=== PATIENT | male | born 1950 | race Caucasian/White ===

== ENCOUNTER 2017-05-21 10:55 | Inpatient (IN) | payer MEDICARE, MEDICAID ==
[2017-05-21] MEDS: NS 0.9% 1000 ML* 1,000 ML IV ONE ×3 (11:40→12:19)
[2017-05-21 11:51] LABS: ABS Basophils 0.1 10^3/ul (0-0.2); ABS Eosinophils 0.1 10^3/ul (0-0.6); ABS Lymphocytes 0.5 10^3/ul (1.0-4.8); ABS Monocytes 0.4 10^3/ul (0-0.8); ABS Neutrophils 3.6 10^3/ul (1.5-7.7); ABS Nucleated RBC 0 10^3/ul; Eosinophil % 1.6 % (0-6); Hematocrit 28 % (42-52); Lymphocyte % 10.5 % (25-47); Mean Corpuscular HGB Conc 32 g/dl (31-36); Mean Corpuscular Hemoglobin 26 pg (27-31); Mean Corpuscular Volume 83 fL (80-94); Mean Platelet Volume 8 um3 (7.4-10.4); Nucleated Red Blood Cells % 0; Platelet Count 168 10^3/ul (150-450); Red Blood Count 3.42 10^6/ul (4.0-5.4); Red Cell Distribution Width 20 % (10.5-15); White Blood Count 4.7 10^3/ul (3.5-10.8)
[2017-05-21 11:57] LABS: INR 1.43 (0.77-1.02)
[2017-05-21 12:08] LABS: EGFR Non-African American 63.9 (>60)
[2017-05-21] MEDS ORDERED: Octreotide Acetate* 50 MCG in NS 0.9% 50 ML* 50 ML IVPB ONE (13:05)
[2017-05-21] MEDS ORDERED: Morphine INJ* 2 MG/ML 1 ML CARPUJECT IV PRN (13:17)
[2017-05-21] MEDS ORDERED: Ondansetron INJ* 2 MG/ML VIAL IV PRN (13:17)
[2017-05-21] MEDS ORDERED: Dextrose 50% Syringe 50 ML* 25 GM/50 ML SYRINGE IV PUSH PRN (13:31)
[2017-05-21] MEDS ORDERED: D5W 250 ML BAG* 250 ML IV SCH (14:00)
[2017-05-21] MEDS ORDERED: Pantoprazole IV* 80 MG in NS 0.9% 100 ML* 100 ML IVPB SCH (14:00)
[2017-05-21] MEDS: Octreotide Acetate* 500 MCG in NS 0.9% 100 ML* 100 ML IVPB SCH (14:51)
[2017-05-21] MEDS: Pantoprazole IV* 80 MG in NS 0.9% 250 ML* 250 ML IVPB SCH (15:20)
[2017-05-21] MEDS: Insulin LISPRO* 1 UNITS UNIT SUBCUT SCH ×2 (15:30→17:59)
[2017-05-21] MEDS ORDERED: Insulin LISPRO* 1 UNITS UNIT SUBCUT SCH (16:30)
[2017-05-21] MEDS ORDERED: cefTRIAXone(*) 1 GM in NS 0.9% 50 ML* 50 ML IVPB SCH (17:30)
[2017-05-21] MEDS: cefTRIAXone(*) 1 GM in D5W 50 ML BAG* 50 ML IVPB SCH (17:59)
[2017-05-21 19:13] LABS: Hematocrit 25 % (42-52); Hemoglobin 8.1 g/dl (14.0-18.0)
[2017-05-21 19:56] LABS: Urine Appearance Clear; Urine Blood Negative (Negative); Urine Color Yellow; Urine Ketones Trace (Negative); Urine Protein Negative (Negative); Urine Specific Gravity 1.016 (1.010-1.030); Urine Urobilinogen Negative (Negative)
--- NOTE | 2017-05-21 20:18 | HP ---
CC: Dr. Curry * HISTORY AND PHYSICAL: DATE OF ADMISSION: 05/21/17 PROVIDER: Che Becerra NP PRIMARY CARE DOCTOR: Dr. Curry. ATTENDING PHYSICIAN WHILE IN THE HOSPITAL: Milla Craig MD * (dictated by Che Becerra NP). CHIEF COMPLAINT: GI bleed. HISTORY OF PRESENT ILLNESS: Mr. Colón is a 66-year-old male, who carries a past medical history of diabetes, hypertension, cryptogenic cirrhosis of the liver, gout. He came to the emergency room today complaining of bright red blood from the rectum. He states up until yesterday, he was in his normal state of health. This morning he got up, he felt like he was going to pass out , so he lied down. He says then he went to the bathroom and had a large bright red bowel movement x2. He denies any abdominal cramping. He denies any abdominal pain. He does report that on Thursday he did have a paracentesis done in which he had 2 bags of fluid removed in Dr. Diaz's office. He states that after that he was feeling better and that his breathing was better. He reports that his last colonoscopy was approximately 2 years ago and at that time it was within normal limits. He denied having any polyps. He states that he was followed by GI in [facility] for his colonoscopies. While in the emergency room , he was found to be hypotensive with the blood pressure as low as 77/59. He was given 3 L of normal saline and 2 units of blood. He denies any nausea or vomiting. He denies abdominal pain. Denies any recent weight loss. Denies any shortness of breath or chest pain. Denies any urinary frequency or urgency. Denies any loss of consciousness. Denies any fevers. We were asked to see and evaluate Mr. Colón for admission due to his hypotension and GI bleed. PAST MEDICAL HISTORY: Significant for: 1. Diabetes. 2. Hypertension. 3. Cryptogenic cirrhosis of the liver. 4. Gout. PAST SURGICAL HISTORY: 1. Cataracts. 2. Tonsils. 3. [place] tooth. MEDICATIONS: Home medications include: 1. Multivitamin 1 p.o. daily. 2. Spironolactone 25 mg p.o. b.i.d. 3. Glipizide 10 mg p.o. daily. 4. Ramipril 10 mg p.o. daily. 5. Allopurinol 300 mg p.o. daily. 6. Atenolol/chlorthalidone 50/25 one p.o. daily. ALLERGIES TO MEDICATIONS: No known drug allergies. FAMILY HISTORY: Father with a history of an DE. Mother with a history of diabetes, and father and mother both with a history of cancer. Mother with a history of breast cancer, father with unknown type of cancer. SOCIAL HISTORY: The patient was a previous smoker, he quit 18 years ago, prior to that he smoked a pack a day for approximately 5 years. He denies any current alcohol use, he states that in the past he drank occasionally, approximately 1 beer occasionally and was never a heavy drinker and denies any illicit drug use. He is retired. He lives alone. At this time, he does not have a surrogate decision maker. REVIEW OF SYSTEMS: There was no documented fever. No significant weight change. There was no double vision. No ear drainage. He denies having any rhinorrhea. Denies sore throat. Denies having any chest pain. Denies orthopnea or nocturnal dyspnea. There was no abdominal pain. No nausea. No vomiting. No dysuria. No frequency. There was no loss of consciousness. No pruritus. No skin ulcerations. He does report 2 episodes of bright red blood, loose stool this morning and no further. Review of 14 systems was completed and all others were negative. PHYSICAL EXAMINATION GENERAL: At this time, Mr. Colón is a 66-year-old male, who appears well. He is resting on the stretcher. He does not appear to be in any acute distress. VITAL SIGNS: Blood pressure is 86/46, heart rate is 76, respirations are 20, O2 sat was 99%, temperature was 98.4. HEENT: Head is atraumatic, normocephalic. Eyes: EOMs are intact. Sclerae anicteric, they are pale. Conjunctivae are pale. Oral mucosa appears to be dry. There is no oropharyngeal edema. NECK: Supple. LUNGS: Clear to auscultation bilaterally. There is no wheezes, rales or rhonchi. CARDIAC: S1, S2. Regular rate and rhythm. There is no murmurs, rubs, or gallops. He has +2 pitting edema to bilateral lower legs. ABDOMEN: Round, soft. Bowel sounds are positive x4. It is nontender. EXTREMITIES: Pedal pulses are +2. Radial pulses +2. He is moving all 4 extremities with 5/5 strength. NEUROLOGIC: He is awake, alert and oriented x3. His speech is clear. There is no focal deficits. SKIN: He has got bilateral scaling of the skin noted to bilateral shins with some brownish discoloration noted to the lower legs. DIAGNOSTIC STUDIES/LAB DATA: WBC's were 4.7, RBC's 3.42, hemoglobin was 9, hematocrit was 28, platelet count was 168,000. INR was 1.43. Chemistry: Sodium was 132, potassium of 4.4, chloride 102, carbon dioxide 23, anion gap was 7, BUN was 26, creatinine 1.14, calcium was 8.7. AST 21, ALT 9, alk phos was 54. BNP was 54. Total protein was 6.0. Albumin was 3.1. Electrocardiogram showed a sinus rhythm at rate of 72. There is no ST or T- wave changes. ASSESSMENT AND PLAN: Mr. Colón is a 66-year-old male patient that came to the emergency room today with a complaint of bright red blood from rectum. We were asked to evaluate him because of rectal bleeding and hypotension. He will be admitted to the ICU under inpatient status. 1. GI bleed. GI was consulted. We will place him on a Protonix drip. He was also placed on octreotide at 50 mcg per hour. He will receive 2 units of blood , which are currently infusing. He received normal saline, a total of 3 L in the emergency room. We will continue to trend his H and H q.6 hours and transfuse as needed. 2. Cryptogenic cirrhosis. We will place him on octreotide acetate 50 mcg per hour drip for the possibility of esophageal varices. 3. Hypertension. We will hold his Altace and atenolol with chlorthalidone at this time due to his hypotension. We will continue fluids as needed. 4. Gout. We will hold his allopurinol. 5. Diabetes. We will place him on fingersticks q.6 hours and lispro sliding scale q.6 hours. 6. FEN. He will be n.p.o. 7. Code status is full code. 8. DVT prophylaxis. We will give him SCDs. We will not place him on anticoagulation at this time due to his GI bleed. 9. Disposition. He will be placed in ICU for monitoring. TIME SPENT: Time spent on this admission was approximately 60 minutes, greater than half the time was spent [id number] with the patient obtaining his history and physical; the other half of the time was spent going over the plan of care with the patient and implementing the plan of care. I did discuss this plan with my attending, Dr. Milla Craig, and she is in agreement with my plan. CHE BECERRA, INDUSTRIAL ECOLOGY TECHNICIAN [id number]/[facility] #: [id number] VALERIO
[2017-05-21] MEDS: NS 0.9% 1000 ML* 1,000 ML IV SCH (23:00)
[2017-05-22] MEDS: Insulin LISPRO* 1 UNITS UNIT SUBCUT SCH ×4 (00:37→18:16)
[2017-05-22 00:52] LABS: Hematocrit 25 % (42-52); Hemoglobin 7.9 g/dl (14.0-18.0)
[2017-05-22] MEDS: Octreotide Acetate* 500 MCG in NS 0.9% 100 ML* 100 ML IVPB SCH ×3 (00:58→21:31)
[2017-05-22] MEDS: Pantoprazole IV* 80 MG in NS 0.9% 250 ML* 250 ML IVPB SCH ×3 (00:58→23:21)
--- NOTE | 2017-05-22 04:37 | CONS ---
GI CONSULTATION NOTE: DATE OF CONSULTATION: 05/21/17. REASON FOR CONSULTATION: GI bleeding. HISTORY OF PRESENT ILLNESS: A 66-year-old gentleman with underlying history of diabetes and hypertension, presented with two episodes of bright red blood per rectum associated with dizziness. He reports that he started developing abdominal distension about a month ago and had two paracentesis performed through primary care provider. His labs also revealed hypoalbuminemia. Outside workup showed that he has pancytopenia. LFTs are within normal range except for a low protein level of 6.4. Iron studies showed low ferritin levels in the range of 14.8. Viral hepatitis serologies for hepatitis A, B and C were negative. He also had a CT scan performed on 05/05/17. CT scan of the chest, abdomen and pelvis, which revealed large amount of ascites along with enlarged caudate lobe of the liver with nodular contour of the liver consistent with cirrhosis. There was also splenomegaly likely due to portable hypertension. There was sludge in the gallbladder. The patient reports that he was supposed to have an outpatient GI consultation yesterday, but due to extremely bad weather, he was not able to go to the office for GI consultation. The patient was admitted to ICU due to mild hypotension. Currently, he is on octreotide drip as well as Protonix. PAST MEDICAL HISTORY: Hypertension, gout, diabetes. PAST SURGICAL HISTORY: Cataracts, tonsillectomy, colonoscopy in October 2014, by Dr. Mcgee, was unremarkable. HOME MEDICATIONS: 1. Allopurinol. 2. Atenolol. 3. Multivitamins. 4. Ramipril. 5. Spironolactone. 6. Glipizide. ALLERGIES: NKDA. FAMILY HISTORY: Mother had diabetes. SOCIAL HISTORY: Denies any alcohol use, smoking or illicit drug use. REVIEW OF SYSTEMS: He denies any chest pain, but had complaint of dyspnea and dizziness. PHYSICAL EXAM: Elderly gentleman, lying in the bed, without any acute distress. Vital Signs: Stable. Pulse 80 per minute regular, blood pressure 105 /63. Skin: Warm, dry without rash. Multiple tattoos on the forearms. Neck: Supple. No JVD. Chest: Clear to auscultation bilaterally. CVS: S1, S2, regular without murmurs, gallops. Abdomen: Obese, distended with fluid thrill. No organomegaly appreciated. Neurologic: Alert, awake, oriented to time, place, person. No evidence of asterixis. Extremities: 2+ pitting edema. DATA REVIEW: Labs performed at admission showed hemoglobin of 9, WBC 4.7, platelets 168, INR 1.43, BUN 26 and creatinine 1.4. Sodium 132, total bilirubin , AST, ALT and alkaline phosphatase were within normal range. Total protein and albumin were 6 and 3.1 respectively. Outside lab work from 05/12/17 showed viral hepatitis serologies for hepatitis A , B and C were negative. Ferritin of 14.8 ng/mL. CT scan 05/07/17 revealed moderate to large amount of ascites along with enlarged caudate lobe of the liver and nodular contour of the liver consistent with cirrhosis. There was splenomegaly likely portal hypertension. ASSESSMENT: A 66-year-old gentleman with underlying diabetes and hypertension, who has developed cirrhosis most likely due to nonalcoholic fatty liver disease , compounded with ascites and now with GI bleeding with complaint of hematochezia and dizziness. Differential diagnosis includes upper and versus lower GI bleeding. Differential also includes variceal bleeding, AVMs, colorectal malignancy, although he had a colonoscopy in October 2014, which was unremarkable. RECOMMENDATIONS: 1. Continue ICU monitoring. 2. Continue to keep NPO. 3. Continue octreotide infusion and pantoprazole infusion. 4. Monitor CBC and transfuse as needed. 5. Start antibiotics for spontaneous bacterial peritonitis prophylaxis. 6. Also obtain diagnostic paracentesis and check albumin and protein level as well as cell count and differential and cultures of the ascitic fluid. 7. Schedule for diagnostic/therapeutic EGD in the morning. NOTE: The patient's assessment and recommendations were discussed with hospitalist, Dr. Milla Craig. [id number]/[facility] #: [id number] VALERIO
[2017-05-22 05:42] LABS: INR 1.41 (0.77-1.02)
[2017-05-22 05:45] LABS: EGFR Non-African American 74.3 (>60)
[2017-05-22 05:58] LABS: Hematocrit 25 % (42-52); Mean Corpuscular HGB Conc 32 g/dl (31-36); Mean Corpuscular Hemoglobin 27 pg (27-31); Mean Corpuscular Volume 84 fL (80-94); Mean Platelet Volume 8 um3 (7.4-10.4); Platelet Count 90 10^3/ul (150-450); Red Cell Distribution Width 18 % (10.5-15); White Blood Count 1.2 10^3/ul (3.5-10.8)
[2017-05-22 06:26] LABS: ABS Basophils 0 10^3/ul (0-0.2); ABS Eosinophils 0 10^3/ul (0-0.6); ABS Lymphocytes 0.3 10^3/ul (1.0-4.8); ABS Monocytes 0.2 10^3/ul (0-0.8); ABS Neutrophils 0.7 10^3/ul (1.5-7.7); ABS Nucleated RBC 0 10^3/ul; Eosinophil % 2.6 % (0-6); Lymphocyte % 27.7 % (25-47); Nucleated Red Blood Cells % 0.1
[2017-05-22] MEDS: NS 0.9% 1000 ML* 1,000 ML IV SCH ×2 (07:08→16:04)
[2017-05-22] MEDS ORDERED: Midazolam* 1 MG/ML 10 ML VIAL (10 MG) ONE (11:10)
[2017-05-22] MEDS ORDERED: fentaNYL* 50 MCG/ML 2 ML VIAL (100 MCG VIAL) ONE (11:10)
--- NOTE | 2017-05-22 13:12 | PN ---
Progress Note - Progress Note Date of Service: 05/22/17 Note: 66 male with BUITRAGO Cirrhosis, hypersplenism, ascites presented with hematochezia & hypotension. EGD (full report dictated) today showed grade III esophageal varices with stigmata of recent as well as imminent bleeding. Seven bands were applied to the varices. Old blood was found in gastric fundus. Recommendations: 1. Continue ICU monitoring. Keep NPO. 2. Monitor CBC & transfuse pRBCs, prn 3. Continue Octreotide infusion x 72 hrs. 4. Continue Protonix. 5. Continue Ceftrioxone 6. Obtain US guided paracentesis. 7. If patient re-bleeds he will require TIPS.
[2017-05-22 14:45] LABS: Hematocrit 26 % (42-52); Hemoglobin 8.5 g/dl (14.0-18.0)
--- NOTE | 2017-05-22 16:43 | PN ---
Subjective Date of Service: 05/22/17 Interval History: received 2U prbcs last night, felt well this morning. Since I saw him this morning, he has since had an EGD which showed grade III varices with stigmata of recent and impending bleeding. He had no complaints this morning. Family History: Unchanged from Admission Social History: Unchanged from Admission Past Medical History: Unchanged from Admission Objective Active Medications: Dextrose (D50w Syringe 50 Ml*) 12.5 gm IV PUSH .FOR FS < 60 - SS PRN PRN Reason: FS < 60 Sodium Chloride (Ns 0.9% 1000 Ml*) 1,000 mls @ 125 mls/hr IV PER RATE [facility] Last Admin: 05/22/17 16:04 Dose: 125 mls/hr Octreotide Acetate 500 mcg/ (Sodium Chloride) 101 mls @ 10.1 mls/hr IVPB Q10H [facility] PRN Reason: 50 MCG/HR Last Admin: 05/22/17 10:08 Dose: 10.1 mls/hr Pantoprazole Sodium 80 mg/ (Sodium Chloride) 250 mls @ 25 mls/hr IVPB Q10H [facility] PRN Reason: Protocol Last Admin: 05/22/17 13:05 Dose: 25 mls/hr Ceftriaxone Sodium 1 gm/ (Dextrose) 50 mls @ 200 mls/hr IVPB Q24H [facility] Last Admin: 05/21/17 17:59 Dose: 200 mls/hr Insulin Human Lispro (Humalog*) 0 units SUBCUT Q6HR [facility] PRN Reason: Protocol Last Admin: 05/22/17 12:37 Dose: 1 units Morphine Sulfate (Morphine Inj (Syringe)*) 2 mg IV Q4H PRN PRN Reason: PAIN Ondansetron HCl (Zofran Inj*) 4 mg IV Q4H PRN PRN Reason: NAUSEA/VOMITING Vital Signs - 8 hr 05/22/17 05/22/17 09:00 16:00 Temperature 98.9 F Pulse Rate 67 Respiratory 21 Rate Blood Pressure 114/61 (mmHg) O2 Sat by Pulse 98 Oximetry Oxygen Devices in Use Now: None Appearance: alert, obese, comfortable. Eyes: No Scleral Icterus Ears/Nose/Mouth/Throat: NL Teeth, Lips, Gums Neck: - - flat jugular veins Respiratory: Symmetrical Chest Expansion and Respiratory Effort Cardiovascular: NL Sounds; No Murmurs; No JVD, RRR Abdominal: - - obese, liver palpable ~5cm below the costal margin. no guarding , rebound. Lymphatic: No Cervical Adenopathy Extremities: - - 2+ b/l LE edema Result Diagrams: 05/22/17 13:00 05/21/17 11:35 Microbiology and Other Data: Microbiology 05/21/17 14:00 Nasal Screen MRSA (PCR)(MILLIE) - Final Nasal Mrsa Not Detected Assess/Plan/Problems-Billing Assessment: - Patient Problems (1) Decompensated hepatic cirrhosis Current Visit: Yes Status: Acute Code(s): K72.90 - HEPATIC FAILURE, UNSPECIFIED WITHOUT COMA SNOMED Code(s): 057327035 Comment: with variceal bleed continue ceftriaxone for sbp ppx insufficient ascites for diagnostic para (2) Upper GI hemorrhage Current Visit: Yes Status: Acute Code(s): K92.2 - GASTROINTESTINAL HEMORRHAGE, UNSPECIFIED SNOMED Code(s): 54371544 Comment: due to varices stigmata of impending bleeding; I called [facility] for consideration of transfer for TIPS if he should rebleed. they have no beds. (3) Pancytopenia Current Visit: Yes Status: Acute Code(s): D61.818 - OTHER PANCYTOPENIA SNOMED Code(s): 955149490 Comment: s/p bone marrow biopsy with Dr. Joe ahmadi
[2017-05-22] MEDS: cefTRIAXone(*) 1 GM in D5W 50 ML BAG* 50 ML IVPB SCH (18:06)
[2017-05-22] MEDS: Potassium Chloride IV* 30 MEQ in NS 0.9% 250 ML* 250 ML IVPB SCH ×2 (18:40→21:30)
[2017-05-22] MEDS ORDERED: Propranolol IV* 1 MG/ML 1 ML VIAL IV PUSH SCH (21:00)
[2017-05-22 21:08] LABS: Hematocrit 26 % (42-52); Hemoglobin 8.3 g/dl (14.0-18.0)
[2017-05-22] MEDS: PROPRANOLOL PO SCH (21:31)
[2017-05-23] MEDS: Insulin LISPRO* 1 UNITS UNIT SUBCUT SCH ×4 (02:13→18:17)
--- NOTE | 2017-05-23 03:05 | CONS ---
CC: Dr. Salazar; Dr. Diaz CONSULTATION REPORT: DATE OF CONSULT: 05/22/17 HISTORY: The patient is a 66-year-old male with known alcoholic cirrhosis and bouts of ascites. I w as called by Dr. Shoemaker to evaluate for paracentesis, for decompression, and for culture. He evident ly had a paracentesis performed at Dr. Diaz's office 3 days ago. He states that 2 bags of fluid wer e removed. He does not know the total volume. He states that a week or so earlier, he had had 1 bag of fluid removed. He states that at this time, he does not feel like the fluid has recurred. He do es not have pressure or distension or swelling. On examination, abdomen is obese and soft. It is not particularly tense. I do not palpate a fluid w ave. The size of the abdomen somewhat limits the sensitivity of the examination. I discussed it with the patient and decided that bedside ultrasound would be carried out to assess fo r the volume of the ascites and with the patient supine in bed, the SonoSite is used to interrogate t he abdomen for ascites. There are scattered areas of ascites but no particularly large pockets are i dentified. In most cases there was no more than about a centimeter between the abdominal wall and th e intestine. There are few areas where there may be a pocket extending 4 or 5 cm deep, but this may only be a couple of centimeters wide and the bowel surrounds it. I discussed this Dr. Shoemaker and I feel that the patient does not have any substantial volume of ascit es so that removing the fluid will not change his symptoms in anyway. With regard to taking off flui d for culture, there would be some increased risk of injury to the bowel, I think it could be done un [place] ultrasound guidance, but one should consider whether the risk outweighs the benefit. At this poi nt, it was decided that I would not perform a paracentesis and if it becomes necessary in the future, he can be reevaluated with ultrasound to see if there is more fluid. Alternatively, invasive Radiol ogy, I am sure could accomplish this under sono guidance with relatively small risk. Please call if I can be of any additional assistance. [id number]/[facility] #: [id number]
[2017-05-23] MEDS: NS 0.9% 1000 ML* 1,000 ML IV SCH ×3 (03:22→19:24)
[2017-05-23 06:00] LABS: INR 1.38 (0.77-1.02)
[2017-05-23 06:02] LABS: EGFR Non-African American 69.5 (>60)
[2017-05-23 06:08] LABS: ABS Basophils 0 10^3/ul (0-0.2); ABS Eosinophils 0.1 10^3/ul (0-0.6); ABS Lymphocytes 0.3 10^3/ul (1.0-4.8); ABS Monocytes 0.2 10^3/ul (0-0.8); ABS Neutrophils 0.9 10^3/ul (1.5-7.7); ABS Nucleated RBC 0 10^3/ul; Eosinophil % 4.2 % (0-6); Hematocrit 27 % (42-52); Hemoglobin 8.7 g/dl (14.0-18.0); Lymphocyte % 18.7 % (25-47); Mean Corpuscular HGB Conc 32 g/dl (31-36); Mean Corpuscular Hemoglobin 27 pg (27-31); Mean Corpuscular Volume 84 fL (80-94); Mean Platelet Volume 8 um3 (7.4-10.4); Nucleated Red Blood Cells % 0.1; Platelet Count 94 10^3/ul (150-450); Red Cell Distribution Width 18 % (10.5-15); White Blood Count 1.4 10^3/ul (3.5-10.8)
[2017-05-23] MEDS: Octreotide Acetate* 500 MCG in NS 0.9% 100 ML* 100 ML IVPB SCH ×2 (09:07→15:39)
[2017-05-23] MEDS: PROPRANOLOL PO SCH ×2 (09:33→21:44)
[2017-05-23] MEDS: Pantoprazole IV* 80 MG in NS 0.9% 250 ML* 250 ML IVPB SCH ×4 (09:34→20:24)
--- NOTE | 2017-05-23 12:45 | PRO ---
PROCEDURE REPORT: DATE OF PROCEDURE: 05/22/17 PROCEDURE PERFORMED: EGD with variceal band ligation. ATTENDING PHYSICIAN: Tanner Peralta MD ASSISTANTS: Lisbeth Celestin RN and Sherwin Ya, outboard technician ANESTHESIA TYPE: Moderate sedation. ASA III, Mallampati score III. MEDICATIONS: 1. Fentanyl 75 mcg intravenously. 2. Midazolam 5 mg intravenously. SEDATION TIME: 18 minutes. INDICATIONS: A 66-year-old gentleman with recent diagnosis of BUITRAGO cirrhosis, hypersplenism, and asc ites, presented with hematochezia and hypertension along with acute blood loss anemia with a hemoglob in of 8. He was admitted to ICU and is undergoing diagnostic EGD due to concern for variceal bleedin g. Currently, he has been on octreotide infusion, Protonix infusion, and prophylactic ceftriaxone. DESCRIPTION OF PROCEDURE: After explaining the risks, benefits, and alternatives as well as complica tions of procedure, written consent was obtained from the patient. With the patient in the left late ral decubitus position, medications were administered in small increments. The patient's vital signs were monitored throughout the procedure while he was in ICU. Video gastroscope was [facility] from [facility] and directed into the esophagus, stomach, all the way up to second portion of duodenum. Mucosa w as examined both on insertion and withdrawal. Findings were given as below. The patient tolerated t he procedure well and was kept in ICU for further management. FINDINGS: Esophagus: There were at least 3 cords of grade 3 tortuous varices with red alfredo gopi and an area of "white nipple sign" suggestive of a recent bleeding. There was no active bleeding at the time of procedure. GE junction was regular and located at 45 cm from incisor. 7 neoprene bands were applied to these varices with decompression of some of these varices, but not complete eradication. Stomach: There was a large amount of old blood in the gastric fundus, which could not be cleared; th erefore, the gastric cardia could not be examined effectively. Examined mucosa did not reveal any obv ious ulceration in the stomach. Duodenum: Mucosa was normal up to the second portion of duodenum. IMMEDIATE COMPLICATIONS: None. BLOOD LOSS: None. IMPRESSION: 1. Three cords of large tortuous esophageal varices with stigmata of recent as well as imminent blee ding status post endoscopic variceal band ligation with incomplete eradication. 2. Old blood in the stomach. RECOMMENDATIONS: 1. Continue ICU monitoring. 2. Monitor CBC and transfuse as needed. 3. Continue octreotide infusion to at least 72 hours. 4. Continue Protonix IV. 5. Keep n.p.o. 6. Obtain paracentesis to rule out spontaneous bacterial peritonitis and also check albumin-protein levels in the ascitic fluid. 7. If the patient re-bleeds, he probably will require TIPS procedure. The findings and recommendations were discussed with hospitalist, Dr. Mulu Shoemaker. [id number]/[facility] #: [id number]
[2017-05-23] MEDS ORDERED: Al Hydrox/Mg Hydrox/Simet LIQ* 30 ML UDC PO PRN (14:49)
--- NOTE | 2017-05-23 17:00 | PN ---
Subjective Date of Service: 05/23/17 Interval History: no bleeding. no nausea, abdominal pain, vomiting, melena, or hematochezia. Family History: Unchanged from Admission Social History: Unchanged from Admission Past Medical History: Unchanged from Admission Objective Active Medications: Al Hydrox/Mg Hydrox/Simethicone (Maalox Plus*) 30 ml PO Q6H PRN PRN Reason: INDIGESTION Last Admin: 05/23/17 15:05 Dose: 30 ml Dextrose (D50w Syringe 50 Ml*) 12.5 gm IV PUSH .FOR FS < 60 - SS PRN PRN Reason: FS < 60 Sodium Chloride (Ns 0.9% 1000 Ml*) 1,000 mls @ 125 mls/hr IV PER RATE [facility] Last Admin: 05/23/17 11:12 Dose: 125 mls/hr Octreotide Acetate 500 mcg/ (Sodium Chloride) 101 mls @ 10.1 mls/hr IVPB Q10H [facility] PRN Reason: 50 MCG/HR Last Admin: 05/23/17 15:39 Dose: 10.1 mls/hr Pantoprazole Sodium 80 mg/ (Sodium Chloride) 250 mls @ 25 mls/hr IVPB Q10H [facility] PRN Reason: Protocol Last Admin: 05/23/17 09:36 Dose: Not Given Ceftriaxone Sodium 1 gm/ (Dextrose) 50 mls @ 200 mls/hr IVPB Q24H [facility] Last Admin: 05/22/17 18:06 Dose: 200 mls/hr Insulin Human Lispro (Humalog*) 0 units SUBCUT Q6HR [facility] PRN Reason: Protocol Last Admin: 05/23/17 13:42 Dose: Not Given Morphine Sulfate (Morphine Inj (Syringe)*) 2 mg IV Q4H PRN PRN Reason: PAIN Cmcs: Propranolol (5mg/Ml Suspension) 1 dose PO BID [facility] PRN Reason: Protocol Last Admin: 05/23/17 09:33 Dose: 1 dose Ondansetron HCl (Zofran Inj*) 4 mg IV Q4H PRN PRN Reason: NAUSEA/VOMITING Vital Signs - 8 hr 05/23/17 05/23/17 05/23/17 09:00 10:00 11:00 Temperature Pulse Rate 73 69 72 Respiratory 18 19 20 Rate Blood Pressure 145/68 141/66 136/73 (mmHg) O2 Sat by Pulse 96 98 97 Oximetry 05/23/17 05/23/17 05/23/17 12:00 13:00 14:00 Temperature 97.6 F Pulse Rate 71 74 Respiratory 18 23 21 Rate Blood Pressure 143/73 137/73 (mmHg) O2 Sat by Pulse 97 95 Oximetry 05/23/17 05/23/17 15:00 15:56 Temperature 97.5 F Pulse Rate 75 Respiratory 26 Rate Blood Pressure 137/73 (mmHg) O2 Sat by Pulse 97 Oximetry Oxygen Devices in Use Now: Nasal Cannula Appearance: no distress, well appearing Eyes: No Scleral Icterus Ears/Nose/Mouth/Throat: NL Teeth, Lips, Gums Neck: NL Appearance and Movements; NL JVP Respiratory: Symmetrical Chest Expansion and Respiratory Effort Cardiovascular: NL Sounds; No Murmurs; No JVD, RRR Abdominal: - - liver palpable 5cm below costal margin. spleen not palpable. no ascites Lymphatic: No Cervical Adenopathy Extremities: - - 2+ le edema b/l Neurological: Alert and Oriented x 3, - - no asterixis Result Diagrams: 05/23/17 05:26 05/23/17 05:26 Microbiology and Other Data: Microbiology 05/21/17 14:00 Nasal Screen MRSA (PCR)(MILLIE) - Final Nasal Mrsa Not Detected Assess/Plan/Problems-Billing Assessment: - Patient Problems (1) Decompensated hepatic cirrhosis Current Visit: Yes Status: Acute Code(s): K72.90 - HEPATIC FAILURE, UNSPECIFIED WITHOUT COMA SNOMED Code(s): 602319294 Comment: with variceal bleed continue ceftriaxone for sbp ppx insufficient ascites for diagnostic para (2) Upper GI hemorrhage Current Visit: Yes Status: Acute Code(s): K92.2 - GASTROINTESTINAL HEMORRHAGE, UNSPECIFIED SNOMED Code(s): 73338964 Comment: due to varices stigmata of impending bleeding; I called [facility] for consideration of transfer for TIPS if he should rebleed. they have no beds. continue protonix, octreotide, and propranolol (3) Pancytopenia Current Visit: Yes Status: Acute Code(s): D61.818 - OTHER PANCYTOPENIA SNOMED Code(s): 938139070 Comment: s/p bone marrow biopsy with Dr. Diaz recently, will try to get results
[2017-05-23] MEDS: cefTRIAXone(*) 1 GM in D5W 50 ML BAG* 50 ML IVPB SCH (18:17)
--- NOTE | 2017-05-23 20:55 | ED ---
Sachin Turjillo Jennifer, scribed for Vimal Payne MD on 05/21/17 at 1135 . GI/ HPI - HPI Summary HPI Summary: The patient is a 66 year old male who presents with rectal bleeding that began this morning. He reports that he had bright red blood in the stools twice. He was diagnosed with cirrhosis one month ago. 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 The patient additionally complains of shortness of breath and dizziness this morning. He adds that he had diarrhea that got worse and became a dark green. He denies chest pain, black stools, as well as hepatitis. - History of Current Complaint Chief Complaint: EDGIBleed Stated Complaint: BLOOD IN STOOL Hx Obtained From: Patient Onset/Duration: Started Hours Ago - This morning, Still Present Timing: Constant Severity: Mild Current Severity: Mild Pain Intensity: 0 Associated Signs and Symptoms: Positive: Dizziness, Bright Red Blood w/Stool, Diarrhea, Other: - shortness of breath. Negative: Black Tarry Stool, Chest Pain Aggravating Factor(s): Nothing Alleviating Factor(s): Nothing - Allergy/Home Medications Allergies/Adverse Reactions: Allergies Allergy/AdvReac Type Severity Reaction Status Date / Time No Known Allergies Allergy Verified 05/21/17 12:06 Home Medications: Home Medications Allopurinol TAB* [Zyloprim 300 MG TAB*] 300 mg PO DAILY 05/21/17 [History Confirmed 05/21/17] Atenolol/Chlorthalidone [Atenolol/Chlorthalidone 50-25 mg-] 1 tab PO DAILY 05/21 [History Confirmed 05/21/17] Multivitamins/Minerals TAB* [Theragran/minerals TAB*] 1 tab PO DAILY 05/21/17 [ History Confirmed 05/21/17] Ramipril CAP* [Altace CAP*] 10 mg PO DAILY 05/21/17 [History Confirmed 05/21/17] Spironolactone TAB* [Aldactone TAB*] 25 mg PO BID 05/21/17 [History Confirmed ] glipiZIDE TAB* [Glucotrol TAB*] 10 mg PO DAILY 05/21/17 [History Confirmed 05/21] PMH/Surg Hx/FS Hx/Imm Hx Endocrine/Hematology History: Reports: Hx Diabetes, Hx Anemia Cardiovascular History: Reports: Hx Hypertension GI History: Reports: Hx Cirrhosis History: Denies: Hx Renal Disease - Surgical History Surgery Procedure, Year, and Place: cataracts, tonsillectomy Infectious Disease History: No Infectious Disease History: Denies: Traveled Outside the [place] in Last 30 Days - Family History Known Family History: Positive: Diabetes - Mother's side - Social History Substance Use Type: Reports: None Review of Systems Negative: Chest Pain Positive: Shortness Of Breath Gastrointestinal: Other - Bloody stool Positive: Diarrhea. Negative: Other - Black tarry stool Neurological: Other - Dizziness All Other Systems Reviewed And Are Negative: Yes Physical Exam - Summary Physical Exam Summary: Appearance: Pale. Skin: Warm, Dry, No rash Eyes: Conjuctiva pallor. PERRL, EOMI, sclera anicteric ENT: Normal Neck: Supple, nontender Respiratory: Clear to auscultation Cardiovascular: S1, S2, Tachycardic without murmurs, regular rhythm, no rub, no gallop. Chronic venous stasis changes. Abdomen: Abdomen obese with possible fluid wave no organomegaly Bowel sounds: Present Musculoskeletal: Normal, Strength/ROM Intact, no edema, pulses symmetrical Extremities: with 2+ edema. No asterixis. Neurological: Normal, A&Ox3, cranial nerves II-XII WNL, follows commands, gait not tested, sensation intact to pin and light touch Psychiatric: affect normal, behavior appropriate, dressed appropriately, judgment intact, answers questions appropriately. Triage Information Reviewed: Yes Vital Signs On Initial Exam: Initial Vitals Temp Pulse Resp BP Pulse Ox 98.4 F 92 17 117/53 100 05/21/17 10:57 05/21/17 10:57 05/21/17 10:57 05/21/17 10:57 05/21/17 10:57 Vital Signs Reviewed: Yes Diagnostics - Vital Signs Vital Signs Temp Pulse Resp BP Pulse Ox 05/21/17 10:57 98.4 F 92 17 117/53 100 - Laboratory Result Diagrams: 05/21/17 11:35 05/21/17 11:35 Lab Statement: Any lab studies that have been ordered have been reviewed, and results considered in the medical decision making process. - EKG 11:51 Cardiac Rate: NL EKG Rhythm: Sinus Rhythm - 72 BPM EKG Interpretation: No acute changes GIGU Course/Dx - Course Assessment/Plan: In the ED course the patient was given IV fluids. Comprehensive metabolic panel was obtained. EKG was obtained. The patient is diagnosed with upper GI bleeding and hypotension. The patient will be admitted to [facility]. - Diagnoses Provider Diagnoses: Upper GI bleeding, Hypotension Discharge - Discharge Plan Condition: Good Disposition: ADMITTED TO [facility] Referrals: Elias Curry MD [Primary Care Provider] - Additional Instructions: RETURN TO THE EMERGENCY DEPARTMENT FOR CHANGING OR WORSENING SYMPTOMS. The documentation as recorded by the Sachin graves Jennifer accurately reflects the service I personally performed and the decisions made by Elmer galicia Matthew, MD.
[2017-05-23 22:52] VITALS: BP 122/68
--- NOTE | 2017-05-24 06:09 | DS ---
CC: Elias Curry MD TRANSFER SUMMARY: DATE OF ADMISSION: 05/21/17 DATE OF TRANSFER: 05/23/2017, to [facility] Intensive Care Unit. ACCEPTING PHYSICIAN: Negrito Jung MD. PRIMARY CARE PHYSICIAN: Elias Curry MD. REASON FOR TRANSFER: For evaluation for a TIPS procedure and high risk for re- bleed from esophageal varices, with no GI coverage. PRINCIPAL DIAGNOSES: 1. Upper GI bleed secondary to esophageal varices bleed. 2. Decompensated hepatic cirrhosis. 3. Pancytopenia. HOSPITAL COURSE: This is a 66-year-old male with a past medical history of cryptogenic cirrhosis of the liver, hypertension, and diabetes, who presented to the emergency room on the 05/21/17, for a GI bleed. He was admitted to the ICU. He was given 2 units of blood, placed on Protonix drip and octreo tide, and GI was consulted. Dr. Peralta from GI evaluated him on the 05/21/17. Initially they atte mpted to do a diagnostic paracentesis, but did not have enough ascitic fluid to do this. He was sche duled to have an EGD done on 05/22/17, which was done. He had 3 cords of large torturous esophageal varices with stigmata of recent as well as imminent bleeding, status post endoscopic variceal band li gation with incomplete eradication. He had 7 neoprene bands applied to the varices with decompressio n of some of these varices, but not complete eradication. He was diagnosed as grade 3 esophageal reynaldo ices with stigmata of recent as well as imminent bleeding, status post 7 bands applied. He was also seen on 05/22/17 by Surgery, Dr. Salazar, regarding paracentesis and, as mentioned, there was not a hines bstantial amount of ascitic fluid to have a paracentesis done. Dr. Shoemaker, the hospitalist, spoke wi th GI in terms of having a TIPS procedure if he were to re-bleed, which was felt to be appropriate; a lso, with no GI coverage, the thought to transfer him to [facility] was most appropriate as well. A bed became available this evening and Dr. Jung from Medical Intensive Care Unit, [facility] , accepted his transfer. The patient is also been having issues with pancytopenia. He had a bone mar row done on January 2017, that showed no clonal abnormalities. 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 Increased iron stores noted on iron stain with appropriate controls. Patient's labs on transfer were white count 1.4, hemoglobin 8.7, hematocrit 87, platelets 94, absolu te neutrophil 0.9, INR was 1.38. Sodium 134, potassium 5, chloride 108, bicarb 23, BUN 20, creatinin e 1.06, glucose 121. Albumin of 2.7, His vitals were a temperature of 97.1, pulse rate 76, respiratory rate 20, oxygen saturation 98% on 1 liter. Blood pressure 124/68. The patient is no acute distress. Denies any complaints. He is pal e in appearance. The patient received a total of 2 units of blood. He is going to be transferred to [facility] ICU on Protonix drip, octreotide drip, and normal saline. Lolis lion has been receiving ceftriaxone 1 g q.24 hours. MEDICATIONS: Inpatient medications are: 1. Maalox as needed. 2. Ceftriaxone 1 g q. 24 hours. 3. Lispro sliding scale. 4. Morphine 2 mg q.4 hours as needed. 5. Propranolol 2 mL p.o. b.i.d., which is 10 mg. 6. Normal saline 125 mL an hour. 7. Octreotide 50 mcg an hour. 8. Pantoprazole 25 mL an hour. Please refer to full complete medical records for more detailed hospitalization course and studies. The patient is aware of the transfer. He is going to call and notify his family as well, and he has signed consent for this transfer, and he is aware of the reasons behind the transfer. TIME SPENT: Patient time was greater than 30 minutes obtaining this discharge summary, more than dominic f that time in direct patient contact. [id number]/[facility] #: [id number]
== END 2017-05-23 23:00 | disposition short-term general hospital (02) | DRG 432 ==
LOC: ED 10:55 → ICU 12:35
PROVIDERS: ADMIT Internal Medicine; ATTEND Internal Medicine
PROC: 30233N1 Transfusion of Nonautologous Red Blood Cells into Peripheral Vein, Percutaneous Approach (ICD-10-PCS; 2017-05-21)
PROC: 06L38CZ Occlusion of Esophageal Vein with Extraluminal Device, Via Natural or Artificial Opening Endoscopic (ICD-10-PCS; principal; 2017-05-22)
DX: K74.69 Other cirrhosis of liver (principal); I85.11 Secondary esophageal varices with bleeding; D61.818 Other pancytopenia; R18.8 Other ascites; D62 Acute posthemorrhagic anemia; E88.09 Other disorders of plasma-protein metabolism, not elsewhere classified; E11.9 Type 2 diabetes mellitus without complications; I10 Essential (primary) hypertension; Z98.42 Cataract extraction status, left eye; Z98.41 Cataract extraction status, right eye; Z83.3 Family history of diabetes mellitus; M10.9 Gout, unspecified; Z82.49 Family history of ischemic heart disease and other diseases of the circulatory system; Z80.3 Family history of malignant neoplasm of breast; Z87.891 Personal history of nicotine dependence; Z72.89 Other problems related to lifestyle; K75.81 Nonalcoholic steatohepatitis (NASH); K74.60 Unspecified cirrhosis of liver
CPT/HCPCS: 36415; 49082; 80048; 80053; 81003; 83880; 85014; 85018; 85025; 85610; 86850; 86900; 86901; 86922; 87641; 93005; 99156; 99284; A9270-GY; J0696; J2250; J2354; J3010; J3480; P9040

== ENCOUNTER 2018-04-16 10:50 | Day surgery (SDC) | payer MEDICAID, MEDICARE ==
[~2018-04-16 10:50] MED LIST: Buffered Lidocaine 0.9% SYRIN* 5 ML/SYR SYRINGE INTRADERM ONE; Lactated Ringers 1000 ML Bag* 1,000 ML IV SCH
[2018-04-16] MEDS ORDERED: Famotidine IV* 10 MG/ML 2 ML (20 mg) ONE (13:20)
[2018-04-16] MEDS ORDERED: Dexamethasone IV* 4 MG/ML 1 ML (4 MG) ONE (13:20)
[2018-04-16] MEDS ORDERED: fentaNYL* 50 MCG/ML 2 ML VIAL (100 MCG VIAL) ONE (13:20)
[2018-04-16] MEDS ORDERED: Midazolam* 1 MG/ML 2 ML VIAL (2 MG) ONE (13:20)
[2018-04-16] MEDS ORDERED: Propofol* 10 MG/ML 20 ML BTL ONE (13:20)
[2018-04-16] MEDS ORDERED: Cisatracurium* 2 MG/ML MDV 5 ML ONE (13:32)
[2018-04-16] MEDS ORDERED: DiMENhydriNATE IV* 50 MG/ML VIAL IV PUSH PRN (14:41)
[2018-04-16] MEDS ORDERED: Naloxone* 0.4 MG/ML 1 ML VIAL IV PRN (14:41)
[2018-04-16] MEDS ORDERED: Ondansetron INJ* 2 MG/ML VIAL IV PRN (14:41)
[2018-04-16 15:23] VITALS: BP 114/71
--- NOTE | 2018-04-18 23:26 | PRO ---
CC: Dr. Elias Curry * DATE OF PROCEDURE: 04/16/18 [facility] PROCEDURE: EGD. INDICATION: Esophageal varices. REFERRING PHYSICIAN: Dr. Elias Curry. MEDICATIONS GIVEN: Anesthesia per the anesthesia services. DESCRIPTION OF PROCEDURE: After the EGD procedure, including the risks, benefits, and alternatives, not limited to perforation, surgery and/or were explained to Mr. Colón, written consent was then obtained. Sedation was provided by the anesthesia doctors and a bite-block was placed between the teeth. An Olympus gastroscope was then inserted into the patient's mouth, advanced to the posterior pharynx. Unfortunately, he has a very difficult upper esophageal sphincter to intubate. The anesthesiologist did provide a forward jaw thrust and that did seem to help. I was able to advance the scope down the esophagus, into the stomach and into the distal duodenum. In the esophagus, at the GE junction, he did have 2 columns of grade 2 esophageal varices. The scope was advanced through the GE junction and into the body of the stomach. Retroflex and forward views revealed portal hypertensive gastropathy. The scope was advanced through a widely patent pylorus, into the duodenal bulb, and into the distal duodenum, both of which were unremarkable. The scope was then withdrawn from the patient. He tolerated the procedure well and was returned to the recovery room in stable condition. IMPRESSION: 1. Complete upper endoscopy into the distal duodenum. 2. Two columns of grade 2 varices. 3. He should have a repeat endoscopy in approximately a year from now. It is going to be very difficult if we ever have to band him to get a banding device down his upper esophageal sphincter. I really recommend that he likely go to a location such as [place] or [place] where they perform multiple difficult intubations on a regular basis. I will convey this to him. [id number]/[facility] #: [id number] [facility]
== END 2018-04-16 15:49 | disposition home or self-care (01) ==
LOC: OR 10:50
PROVIDERS: ATTEND Internal Medicine Gastroenterology
DX: I85.10 Secondary esophageal varices without bleeding (principal); K74.60 Unspecified cirrhosis of liver; Z87.891 Personal history of nicotine dependence; K21.9 Gastro-esophageal reflux disease without esophagitis; E11.9 Type 2 diabetes mellitus without complications; Z79.84 Long term (current) use of oral hypoglycemic drugs; M10.9 Gout, unspecified
CPT/HCPCS: J1100; J2250; J2704; J3010

== ENCOUNTER 2020-06-16 12:19 | Inpatient (IN) ==
[2020-06-16 13:33] LABS: Hematocrit 38 % (42-52); Hemoglobin 12.6 g/dL (14.0-18.0); Mean Corpuscular HGB Conc 34 g/dL (31-36); Mean Corpuscular Hemoglobin 33 pg (27-31); Mean Corpuscular Volume 97 fL (80-94); Red Blood Count 3.84 10^6 /uL (4.18-5.48); Red Cell Distribution Width 17 % (10-15); White Blood Count 6.7 10^3/uL (3.5-10.8)
[2020-06-16 13:34] LABS: ABS Lymphocytes 0.1 10^3/ul (1.0-4.8); ABS Monocytes 0.4 10^3/ul (0-0.8); ABS Neutrophils 6.1 10^3/ul (1.5-7.7); Eosinophil % 0.3 %; Lymphocyte % 2.1 %
[2020-06-16 13:42] LABS: Albumin 2.9 g/dL (3.2-5.2); Albumin/Globulin Ratio 0.5 (1-3); BUN/Creatinine Ratio 29.2 (8-20); C Reactive Protein 226.33 mg/L (<8.01); Calcium 8.8 mg/dL (8.6-10.3); EGFR Non-African American 40.5 (>60); Globulin 5.6 g/dL (2-4); Potassium 4.7 mmol/L (3.5-5.0); Total Bilirubin 1.6 mg/dL (0.2-1.0); Total Protein 8.5 g/dL (6.4-8.9)
[2020-06-16] MEDS ORDERED: Vancomycin 1,500 MG in NS 0.9% 250 ml 250 ML IVPB ONE (13:56)
[2020-06-16] MEDS ORDERED: Cefepime 2 GM in Dextrose 2 GM/50 ML BAG IV ONE (13:57)
[2020-06-16 14:17] LABS: Mean Platelet Volume 9.3 fL (7.4-10.4); Platelet Count 87 10^3/uL (150-450)
[2020-06-16] MEDS: NS 0.9% 1000 ml BAG 2,000 ML IV ONE ×2 (15:03→17:13)
[2020-06-16] MEDS ORDERED: Dextrose 50% Syringe 50 ml 25 GM/50 ML SYRINGE IV PUSH PRN (16:18)
[2020-06-16] MEDS ORDERED: Vancomycin per Pharmacy 1 EA NOTE FOLLOW UP SCH (17:00)
[2020-06-16] MEDS ORDERED: metroNIDAZOLE IV 500 MG/100ML 500 MG/100 ML BAG IVPB SCH (18:00)
[2020-06-17] MEDS: Cefepime 1 GM in Dextrose 1 GM/50 ML BAG IV SCH ×2 (04:12→16:21)
[2020-06-17] MEDS: Vancomycin 1000 MG in NS 0.9% 250 ML IVPB SCH ×2 (05:00→17:20)
[2020-06-17 06:20] LABS: ABS Eosinophils 0.1 10^3/ul (0-0.6); ABS Lymphocytes 0.2 10^3/ul (1.0-4.8); ABS Monocytes 0.3 10^3/ul (0-0.8); ABS Neutrophils 3.6 10^3/ul (1.5-7.7); Eosinophil % 1.5 %; Hematocrit 34 % (42-52); Hemoglobin 11.5 g/dL (14.0-18.0); Lymphocyte % 3.9 %; Mean Corpuscular HGB Conc 34 g/dL (31-36); Mean Corpuscular Hemoglobin 33 pg (27-31); Mean Corpuscular Volume 98 fL (80-94); Mean Platelet Volume 8.6 fL (7.4-10.4); Platelet Count 69 10^3/uL (150-450); Red Blood Count 3.51 10^6 /uL (4.18-5.48); Red Cell Distribution Width 17 % (10-15); White Blood Count 4.1 10^3/uL (3.5-10.8)
[2020-06-17 06:35] LABS: BUN/Creatinine Ratio 33.1 (8-20); Calcium 8.2 mg/dL (8.6-10.3); EGFR African American 65.8 (>60); EGFR Non-African American 54.4 (>60); Potassium 4.3 mmol/L (3.5-5.0)
[2020-06-17] MEDS: metroNIDAZOLE IV 500 MG/100ML 500 MG/100 ML BAG IVPB SCH ×2 (06:37→20:55)
[2020-06-18 06:28] LABS: ABS Eosinophils 0.1 10^3/ul (0-0.6); ABS Lymphocytes 0.2 10^3/ul (1.0-4.8); ABS Monocytes 0.4 10^3/ul (0-0.8); ABS Neutrophils 6.5 10^3/ul (1.5-7.7); Eosinophil % 1.5 %; Hematocrit 39 % (42-52); Hemoglobin 13.2 g/dL (14.0-18.0); Lymphocyte % 3.3 %; Mean Corpuscular HGB Conc 34 g/dL (31-36); Mean Corpuscular Hemoglobin 33 pg (27-31); Mean Corpuscular Volume 99 fL (80-94); Mean Platelet Volume 8.5 fL (7.4-10.4); Platelet Count 103 10^3/uL (150-450); Red Blood Count 3.94 10^6 /uL (4.18-5.48); Red Cell Distribution Width 17 % (10-15); White Blood Count 7.3 10^3/uL (3.5-10.8)
[2020-06-18] MEDS: Cefepime 1 GM in Dextrose 1 GM/50 ML BAG IV SCH ×2 (06:43→18:04)
[2020-06-18 06:46] LABS: Albumin 2.9 g/dL (3.2-5.2); Albumin/Globulin Ratio 0.5 (1-3); Calcium 8.6 mg/dL (8.6-10.3); EGFR Non-African American 49.5 (>60); Globulin 5.7 g/dL (2-4); Potassium 4.9 mmol/L (3.5-5.0); Total Bilirubin 1.3 mg/dL (0.2-1.0); Total Protein 8.6 g/dL (6.4-8.9)
[2020-06-18] MEDS: Vancomycin 1000 MG in NS 0.9% 250 ML IVPB SCH (07:41)
[2020-06-18] MEDS: metroNIDAZOLE IV 500 MG/100ML 500 MG/100 ML BAG IVPB SCH ×2 (10:22→14:37)
[2020-06-18] MEDS ORDERED: Buffered Lidocaine 1% SYRIN 1 ml INTRADERM ONE (10:35)
[2020-06-18] MEDS ORDERED: Vancomycin Trough Check NOTE FOLLOW UP ONE (16:30)
[2020-06-18] MEDS: Ciprofloxacin 0.3% OPTH.SOL BTL RIGHT EYE SCH (22:04)
[2020-06-18] MEDS: Vancomycin 1,000 MG in NS 0.9% 250 ml 250 ML IVPB SCH (22:05)
[2020-06-19] MEDS: Ciprofloxacin 0.3% OPTH.SOL BTL RIGHT EYE SCH ×6 (00:41→19:58)
[2020-06-19] MEDS: metroNIDAZOLE IV 500 MG/100ML 500 MG/100 ML BAG IVPB SCH ×2 (03:33→15:16)
[2020-06-19] MEDS: Cefepime 1 GM in Dextrose 1 GM/50 ML BAG IV SCH ×2 (06:18→06:53)
[2020-06-19] MEDS ORDERED: Vancomycin Trough Check NOTE FOLLOW UP ONE (07:30)
[2020-06-19 07:47] LABS: Albumin 2.6 g/dL (3.2-5.2); Albumin/Globulin Ratio 0.5 (1-3); BUN/Creatinine Ratio 29.1 (8-20); C Reactive Protein 129.22 mg/L (<8.01); Calcium 8.3 mg/dL (8.6-10.3); EGFR African American 67.6 (>60); EGFR Non-African American 55.9 (>60); Globulin 4.9 g/dL (2-4); Potassium 4.6 mmol/L (3.5-5.0); Total Protein 7.5 g/dL (6.4-8.9)
[2020-06-19] MEDS: Vancomycin 1,000 MG in NS 0.9% 250 ml 250 ML IVPB SCH ×2 (09:17→19:58)
[2020-06-19 15:10] LABS: ABS Eosinophils 0.1 10^3/ul (0-0.6); ABS Lymphocytes 0.2 10^3/ul (1.0-4.8); ABS Monocytes 0.3 10^3/ul (0-0.8); ABS Neutrophils 3.1 10^3/ul (1.5-7.7); Eosinophil % 3.1 %; Hematocrit 35 % (42-52); Hemoglobin 11.4 g/dL (14.0-18.0); Lymphocyte % 4.9 %; Mean Corpuscular HGB Conc 33 g/dL (31-36); Mean Corpuscular Hemoglobin 33 pg (27-31); Mean Corpuscular Volume 98 fL (80-94); Mean Platelet Volume 8.1 fL (7.4-10.4); Platelet Count 82 10^3/uL (150-450); Red Blood Count 3.51 10^6 /uL (4.18-5.48); Red Cell Distribution Width 17 % (10-15); White Blood Count 3.7 10^3/uL (3.5-10.8)
[2020-06-19 15:37] LABS: EGFR African American 70.9 (>60); EGFR Non-African American 58.6 (>60)
[2020-06-19] MEDS ORDERED: Influenza VAC *QUAD* 2020-21* 0.5 ML SYRINGE IM ONE (17:00)
[2020-06-19] MEDS: Heparin 5000 UNITS/ML 1 mL VIAL IV SCH (17:25)
[2020-06-19] MEDS: Heparin DRIP 25,000 UNITS BAG 25,000 UNITS/500 ML BAG IV SCH (17:25)
[2020-06-20] MEDS: Ciprofloxacin 0.3% OPTH.SOL BTL RIGHT EYE SCH ×6 (01:08→20:55)
[2020-06-20] MEDS: metroNIDAZOLE IV 500 MG/100ML 500 MG/100 ML BAG IVPB SCH ×2 (03:22→16:09)
[2020-06-20 03:31] LABS: ABS Eosinophils 0.1 10^3/ul (0-0.6); ABS Lymphocytes 0.2 10^3/ul (1.0-4.8); ABS Monocytes 0.3 10^3/ul (0-0.8); ABS Neutrophils 2.8 10^3/ul (1.5-7.7); Eosinophil % 3.7 %; Hematocrit 34 % (42-52); Hemoglobin 11.4 g/dL (14.0-18.0); Lymphocyte % 6.2 %; Mean Corpuscular HGB Conc 33 g/dL (31-36); Mean Corpuscular Hemoglobin 33 pg (27-31); Mean Corpuscular Volume 98 fL (80-94); Mean Platelet Volume 8.5 fL (7.4-10.4); Nucleated Red Blood Cells % 0.1; Platelet Count 73 10^3/uL (150-450); Red Blood Count 3.46 10^6 /uL (4.18-5.48); Red Cell Distribution Width 17 % (10-15); White Blood Count 3.4 10^3/uL (3.5-10.8)
[2020-06-20 03:41] LABS: BUN/Creatinine Ratio 28.8 (8-20); Calcium 8.1 mg/dL (8.6-10.3); EGFR African American 68.9 (>60); EGFR Non-African American 56.9 (>60); Potassium 4.2 mmol/L (3.5-5.0)
[2020-06-20] MEDS: Heparin DRIP 25,000 UNITS BAG 25,000 UNITS/500 ML BAG IV SCH (08:07)
[2020-06-20] MEDS: Vancomycin 1,000 MG in NS 0.9% 250 ml 250 ML IVPB SCH ×2 (08:13→20:52)
[2020-06-20] MEDS: Heparin 5000 UNITS/ML 1 mL VIAL IV SCH (09:33)
[2020-06-20] MEDS ORDERED: Lidocaine 1% VIAL 10 MG/ML VIAL ONE (13:17)
[2020-06-20] MEDS ORDERED: Heparin 2 UNITS/ML IVPREMIX 2,000 UNIT/1,000 ML BAG IV ONE (13:17)
[2020-06-20] MEDS ORDERED: Iodixanol 320 (CONTRAST) 100 ML SDV ONE (13:17)
[2020-06-20] MEDS ORDERED: Heparin 2 UNITS/ML IVPREMIX 1,000 UNIT/500 ML BAG IV ONE ×2 (13:31→13:47)
[2020-06-20] MEDS ORDERED: Midazolam 5 mg/5 ml VIAL 1 mg/ml 5 ml VIAL (5 mg) ONE (13:34)
[2020-06-20] MEDS ORDERED: fentaNYL 100 mcg/2 ml 50 MCG/ML VIAL ONE (13:34)
[2020-06-20] MEDS ORDERED: Heparin 1,000 UNIT/ML 10 ml (10,000 UNITS) CATHLAB/DIALYSIS ONE (14:26)
[2020-06-21] MEDS: Ciprofloxacin 0.3% OPTH.SOL BTL RIGHT EYE SCH ×6 (00:09→19:25)
[2020-06-21] MEDS: Heparin DRIP 25,000 UNITS BAG 25,000 UNITS/500 ML BAG IV SCH ×2 (01:07→18:17)
[2020-06-21] MEDS: metroNIDAZOLE IV 500 MG/100ML 500 MG/100 ML BAG IVPB SCH ×2 (03:27→14:11)
[2020-06-21 06:00] LABS: ABS Eosinophils 0.1 10^3/ul (0-0.6); ABS Lymphocytes 0.2 10^3/ul (1.0-4.8); ABS Monocytes 0.3 10^3/ul (0-0.8); ABS Neutrophils 2.8 10^3/ul (1.5-7.7); Eosinophil % 2.4 %; Hematocrit 34 % (42-52); Hemoglobin 11.1 g/dL (14.0-18.0); Lymphocyte % 5.5 %; Mean Corpuscular HGB Conc 33 g/dL (31-36); Mean Corpuscular Hemoglobin 33 pg (27-31); Mean Corpuscular Volume 99 fL (80-94); Mean Platelet Volume 9.1 fL (7.4-10.4); Nucleated Red Blood Cells % 0.1; Platelet Count 84 10^3/uL (150-450); Red Blood Count 3.42 10^6 /uL (4.18-5.48); Red Cell Distribution Width 17 % (10-15); White Blood Count 3.3 10^3/uL (3.5-10.8)
[2020-06-21 06:01] LABS: Activated Partial Thrombo Time 61.6 seconds (26.0-38.0)
[2020-06-21 06:12] LABS: Albumin 2.4 g/dL (3.2-5.2); Albumin/Globulin Ratio 0.5 (1-3); BUN/Creatinine Ratio 26.8 (8-20); Calcium 7.9 mg/dL (8.6-10.3); EGFR African American 70.2 (>60); Globulin 4.9 g/dL (2-4); Total Bilirubin 0.9 mg/dL (0.2-1.0); Total Protein 7.3 g/dL (6.4-8.9)
[2020-06-21 06:22] LABS: Potassium 4.4 mmol/L (3.5-5.0)
[2020-06-21] MEDS: Vancomycin 1,000 MG in NS 0.9% 250 ml 250 ML IVPB SCH ×2 (08:33→19:26)
[2020-06-21] MEDS ORDERED: Senna TAB 8.6 mg TAB PO PRN (09:37)
[2020-06-21] MEDS ORDERED: Naloxone 0.4 mg VIAL 0.4 mg/ml 1 ml VIAL IV PRN (15:33)
[2020-06-21] MEDS ORDERED: fentaNYL 100 mcg/2 ml 50 MCG/ML VIAL IV PRN (15:33)
[2020-06-21] MEDS ORDERED: DiMENhydriNATE IV 50 mg/ml 1 ml VIAL IV PUSH PRN (15:33)
[2020-06-21] MEDS ORDERED: Propofol 10 MG/ML 20 ML BTL ONE (15:55)
[2020-06-21] MEDS ORDERED: Lidocaine 1% VIAL 10 MG/ML VIAL ONE (15:57)
[2020-06-21] MEDS ORDERED: Midazolam 2 mg/2 ml VIAL 1 mg/ml 2 ml VIAL (2 mg) ONE (15:58)
[2020-06-22] MEDS: Ciprofloxacin 0.3% OPTH.SOL BTL RIGHT EYE SCH ×6 (00:17→21:29)
[2020-06-22] MEDS: metroNIDAZOLE IV 500 MG/100ML 500 MG/100 ML BAG IVPB SCH ×2 (02:51→14:59)
[2020-06-22 06:58] LABS: ABS Eosinophils 0.1 10^3/ul (0-0.6); ABS Lymphocytes 0.2 10^3/ul (1.0-4.8); ABS Monocytes 0.2 10^3/ul (0-0.8); ABS Neutrophils 2.2 10^3/ul (1.5-7.7); Eosinophil % 2.3 %; Hematocrit 33 % (42-52); Hemoglobin 11.1 g/dL (14.0-18.0); Lymphocyte % 6.9 %; Mean Corpuscular HGB Conc 34 g/dL (31-36); Mean Corpuscular Hemoglobin 34 pg (27-31); Mean Corpuscular Volume 100 fL (80-94); Platelet Count 76 10^3/uL (150-450); Red Blood Count 3.32 10^6 /uL (4.18-5.48); Red Cell Distribution Width 17 % (10-15); White Blood Count 2.7 10^3/uL (3.5-10.8)
[2020-06-22 07:15] LABS: Albumin 2.5 g/dL (3.2-5.2); Albumin/Globulin Ratio 0.5 (1-3); Calcium 7.9 mg/dL (8.6-10.3); EGFR African American 75.9 (>60); EGFR Non-African American 62.7 (>60); Potassium 4.1 mmol/L (3.5-5.0); Total Bilirubin 0.8 mg/dL (0.2-1.0); Total Protein 7.5 g/dL (6.4-8.9)
[2020-06-22] MEDS ORDERED: Vancomycin Trough Check NOTE FOLLOW UP ONE (07:30)
[2020-06-22] MEDS: Polyethylene Glycol 3350 17 GM PACKET PO SCH (08:51)
[2020-06-22] MEDS: Heparin DRIP 25,000 UNITS BAG 25,000 UNITS/500 ML BAG IV SCH ×2 (09:01→23:58)
[2020-06-22] MEDS: Vancomycin 1,000 MG in NS 0.9% 250 ml 250 ML IVPB SCH (14:11)
[2020-06-22] MEDS: Vancomycin 750 MG in NS 0.9% 250 ML IVPB SCH (20:03)
[2020-06-23] MEDS: Magnesium Hydroxide LIQ 30 ML UDC PO PRN ×2 (00:10→10:09)
[2020-06-23] MEDS: Ciprofloxacin 0.3% OPTH.SOL BTL RIGHT EYE SCH ×6 (00:11→21:00)
[2020-06-23] MEDS: metroNIDAZOLE IV 500 MG/100ML 500 MG/100 ML BAG IVPB SCH ×2 (03:01→14:04)
[2020-06-23 07:20] LABS: EGFR African American 76.6 (>60); EGFR Non-African American 63.3 (>60)
[2020-06-23 07:54] LABS: ABS Eosinophils 0.1 10^3/ul (0-0.6); ABS Lymphocytes 0.2 10^3/ul (1.0-4.8); ABS Monocytes 0.2 10^3/ul (0-0.8); ABS Neutrophils 1.4 10^3/ul (1.5-7.7); Eosinophil % 4.2 %; Hematocrit 34 % (42-52); Hemoglobin 11.1 g/dL (14.0-18.0); Lymphocyte % 12.4 %; Mean Corpuscular HGB Conc 33 g/dL (31-36); Mean Corpuscular Hemoglobin 33 pg (27-31); Mean Corpuscular Volume 99 fL (80-94); Mean Platelet Volume 9.2 fL (7.4-10.4); Nucleated Red Blood Cells % 0.1; Platelet Count 76 10^3/uL (150-450); Red Blood Count 3.38 10^6 /uL (4.18-5.48); Red Cell Distribution Width 17 % (10-15)
[2020-06-23 07:57] LABS: Calcium 7.8 mg/dL (8.6-10.3); EGFR African American 75.1 (>60); EGFR Non-African American 62.1 (>60)
[2020-06-23] MEDS: Heparin 5000 UNITS/ML 1 mL VIAL IV SCH (08:50)
[2020-06-23] MEDS: Vancomycin 750 MG in NS 0.9% 250 ML IVPB SCH ×2 (08:59→17:29)
[2020-06-23] MEDS: Polyethylene Glycol 3350 17 GM PACKET PO SCH (10:09)
[2020-06-23] MEDS: Heparin DRIP 25,000 UNITS BAG 25,000 UNITS/500 ML BAG IV SCH (15:40)
[2020-06-24] MEDS: Ciprofloxacin 0.3% OPTH.SOL BTL RIGHT EYE SCH ×6 (01:59→19:37)
[2020-06-24] MEDS: metroNIDAZOLE IV 500 MG/100ML 500 MG/100 ML BAG IVPB SCH ×2 (03:33→14:36)
[2020-06-24] MEDS ORDERED: Vancomycin Trough Check NOTE FOLLOW UP ONE (05:30)
[2020-06-24 07:23] LABS: ABS Eosinophils 0.1 10^3/ul (0-0.6); ABS Lymphocytes 0.2 10^3/ul (1.0-4.8); ABS Monocytes 0.2 10^3/ul (0-0.8); ABS Neutrophils 1.7 10^3/ul (1.5-7.7); Eosinophil % 3.1 %; Hematocrit 34 % (42-52); Hemoglobin 11.2 g/dL (14.0-18.0); Lymphocyte % 9.1 %; Mean Corpuscular HGB Conc 33 g/dL (31-36); Mean Corpuscular Hemoglobin 33 pg (27-31); Mean Corpuscular Volume 99 fL (80-94); Mean Platelet Volume 8.9 fL (7.4-10.4); Nucleated Red Blood Cells % 0.1; Platelet Count 73 10^3/uL (150-450); Red Blood Count 3.39 10^6 /uL (4.18-5.48); Red Cell Distribution Width 17 % (10-15); White Blood Count 2.1 10^3/uL (3.5-10.8)
[2020-06-24 07:38] LABS: BUN/Creatinine Ratio 24.4 (8-20); EGFR African American 72.9 (>60); EGFR Non-African American 60.3 (>60)
[2020-06-24 08:30] LABS: Vancomycin Trough 20.6 mcg/mL
[2020-06-24] MEDS: Vancomycin 750 MG in NS 0.9% 250 ML IVPB SCH (08:36)
[2020-06-24] MEDS: Polyethylene Glycol 3350 17 GM PACKET PO SCH (09:01)
[2020-06-24] MEDS: Heparin DRIP 25,000 UNITS BAG 25,000 UNITS/500 ML BAG IV SCH (10:05)
[2020-06-24] MEDS: Vancomycin 500 MG in NS 0.9% 250 ML IVPB SCH (17:35)
[2020-06-25] MEDS: Ciprofloxacin 0.3% OPTH.SOL BTL RIGHT EYE SCH ×6 (03:09→21:30)
[2020-06-25] MEDS: metroNIDAZOLE IV 500 MG/100ML 500 MG/100 ML BAG IVPB SCH ×2 (04:07→14:32)
[2020-06-25] MEDS: Heparin DRIP 25,000 UNITS BAG 25,000 UNITS/500 ML BAG IV SCH ×2 (04:18→20:14)
[2020-06-25] MEDS: Vancomycin 500 MG in NS 0.9% 250 ML IVPB SCH ×2 (05:40→20:14)
[2020-06-25 06:33] LABS: EGFR Non-African American 52.1 (>60)
[2020-06-25] MEDS: Polyethylene Glycol 3350 17 GM PACKET PO SCH (07:52)
[2020-06-25] MEDS ORDERED: NS 0.9% 500 ml BAG 500 ML IV ONE (15:37)
[2020-06-26] MEDS: Ciprofloxacin 0.3% OPTH.SOL BTL RIGHT EYE SCH ×6 (00:11→21:06)
[2020-06-26] MEDS: metroNIDAZOLE IV 500 MG/100ML 500 MG/100 ML BAG IVPB SCH ×2 (02:29→14:42)
[2020-06-26] MEDS ORDERED: Vancomycin Trough Check NOTE FOLLOW UP ONE (05:30)
[2020-06-26 05:36] LABS: ABS Eosinophils 0.1 10^3/ul (0-0.6); ABS Lymphocytes 0.2 10^3/ul (1.0-4.8); ABS Monocytes 0.2 10^3/ul (0-0.8); ABS Neutrophils 1.3 10^3/ul (1.5-7.7); Hematocrit 32 % (42-52); Hemoglobin 10.7 g/dL (14.0-18.0); Lymphocyte % 12.5 %; Mean Corpuscular HGB Conc 33 g/dL (31-36); Mean Corpuscular Hemoglobin 33 pg (27-31); Mean Corpuscular Volume 100 fL (80-94); Mean Platelet Volume 8.8 fL (7.4-10.4); Nucleated Red Blood Cells % 0.2; Platelet Count 81 10^3/uL (150-450); Red Blood Count 3.24 10^6 /uL (4.18-5.48); Red Cell Distribution Width 17 % (10-15); White Blood Count 1.8 10^3/uL (3.5-10.8)
[2020-06-26 05:42] LABS: INR 2.31 (0.82-1.09)
[2020-06-26 05:48] LABS: Albumin 2.4 g/dL (3.2-5.2); Albumin/Globulin Ratio 0.5 (1-3); BUN/Creatinine Ratio 19.7 (8-20); Calcium 7.8 mg/dL (8.6-10.3); EGFR African American 64.7 (>60); EGFR Non-African American 53.5 (>60); Globulin 4.7 g/dL (2-4); Total Bilirubin 0.8 mg/dL (0.2-1.0); Total Protein 7.1 g/dL (6.4-8.9)
[2020-06-26] MEDS: Vancomycin 500 MG in NS 0.9% 250 ML IVPB SCH (08:48)
[2020-06-26] MEDS: Polyethylene Glycol 3350 17 GM PACKET PO SCH (08:57)
[2020-06-26] MEDS ORDERED: Bupivacaine 0.5% SDV PF 30ML VIAL ONE (17:17)
[2020-06-26] MEDS ORDERED: Lidocaine 2% PF 5 ML VIAL ONE (17:34)
[2020-06-26] MEDS ORDERED: Propofol 10 MG/ML 20 ML BTL ONE (17:34)
[2020-06-26] MEDS ORDERED: fentaNYL 100 mcg/2 ml 50 MCG/ML VIAL ONE (17:35)
[2020-06-26] MEDS ORDERED: Midazolam 2 mg/2 ml VIAL 1 mg/ml 2 ml VIAL (2 mg) ONE (17:35)
[2020-06-26] MEDS ORDERED: fentaNYL 100 mcg/2 ml 50 MCG/ML VIAL IV PRN (17:45)
[2020-06-26] MEDS ORDERED: Naloxone 0.4 mg VIAL 0.4 mg/ml 1 ml VIAL IV PRN (17:45)
[2020-06-26] MEDS ORDERED: Ondansetron 4 mg VIAL 2 MG/ML 2 ml VIAL IV PRN (17:45)
[2020-06-26] MEDS ORDERED: HYDROmorphone 1 MG/1 ML SYRINGE IV PRN (17:45)
[2020-06-26] MEDS ORDERED: Ketamine HCL 50 mg/ml 10 ml VIAL (500 MG) ONE (17:49)
[2020-06-26] MEDS ORDERED: Heparin 5000 UNITS/ML 1 mL VIAL IV SCH (21:00)
[2020-06-26] MEDS: Linezolid 600 MG IVPREMIX(*) 600 MG/300 ML BAG IVPB SCH (21:28)
[2020-06-26 21:31] LABS: ABS Eosinophils 0.1 10^3/ul (0-0.6); ABS Lymphocytes 0.3 10^3/ul (1.0-4.8); ABS Monocytes 0.2 10^3/ul (0-0.8); ABS Neutrophils 1.2 10^3/ul (1.5-7.7); Eosinophil % 4.2 %; Hematocrit 33 % (42-52); Hemoglobin 11.1 g/dL (14.0-18.0); Mean Corpuscular HGB Conc 33 g/dL (31-36); Mean Corpuscular Hemoglobin 33 pg (27-31); Mean Corpuscular Volume 99 fL (80-94); Mean Platelet Volume 8.3 fL (7.4-10.4); Nucleated Red Blood Cells % 0.1; Platelet Count 80 10^3/uL (150-450); Red Blood Count 3.37 10^6 /uL (4.18-5.48); Red Cell Distribution Width 17 % (10-15); White Blood Count 1.7 10^3/uL (3.5-10.8)
[2020-06-26] MEDS: Heparin DRIP 25,000 UNITS BAG 25,000 UNITS/500 ML BAG IV SCH (21:33)
[2020-06-26 21:45] LABS: EGFR African American 69.5 (>60); EGFR Non-African American 57.5 (>60)
[2020-06-27] MEDS: Ciprofloxacin 0.3% OPTH.SOL BTL RIGHT EYE SCH ×6 (00:58→22:10)
[2020-06-27 03:50] LABS: ABS Eosinophils 0.1 10^3/ul (0-0.6); ABS Lymphocytes 0.2 10^3/ul (1.0-4.8); ABS Monocytes 0.2 10^3/ul (0-0.8); ABS Neutrophils 1.4 10^3/ul (1.5-7.7); Hematocrit 32 % (42-52); Hemoglobin 10.9 g/dL (14.0-18.0); Lymphocyte % 11.6 %; Mean Corpuscular HGB Conc 34 g/dL (31-36); Mean Corpuscular Hemoglobin 33 pg (27-31); Mean Corpuscular Volume 99 fL (80-94); Mean Platelet Volume 8.7 fL (7.4-10.4); Platelet Count 78 10^3/uL (150-450); Red Blood Count 3.26 10^6 /uL (4.18-5.48); Red Cell Distribution Width 17 % (10-15)
[2020-06-27 03:58] LABS: Albumin 2.5 g/dL (3.2-5.2); Albumin/Globulin Ratio 0.5 (1-3); BUN/Creatinine Ratio 21.7 (8-20); Calcium 8.3 mg/dL (8.6-10.3); EGFR African American 75.9 (>60); EGFR Non-African American 62.7 (>60); Total Bilirubin 1.1 mg/dL (0.2-1.0); Total Protein 7.5 g/dL (6.4-8.9)
[2020-06-27] MEDS: Linezolid 600 MG IVPREMIX(*) 600 MG/300 ML BAG IVPB SCH ×2 (08:55→22:07)
[2020-06-27] MEDS: Polyethylene Glycol 3350 17 GM PACKET PO SCH (09:00)
[2020-06-27 13:22] LABS: Urine Appearance Cloudy; Urine Bilirubin Negative (Negative); Urine Blood Negative (Negative); Urine Color Amber; Urine Glucose Negative (Negative); Urine Ketones Negative (Negative); Urine Nitrite Negative (Negative); Urine Protein Negative (Negative); Urine Specific Gravity 1.018 (1.010-1.030); Urine Urobilinogen Negative (Negative)
[2020-06-27 13:35] LABS: Urine Bacteria 1+ (Absent); Urine Red Blood Cell Trace(0-2/hpf) (Absent); Urine Squamous Epithelial Cell Present (Absent); Urine White Blood Cell 1+(6-10/hpf) (Absent)
[2020-06-27] MEDS: Heparin DRIP 25,000 UNITS BAG 25,000 UNITS/500 ML BAG IV SCH (13:41)
[2020-06-28] MEDS: Ciprofloxacin 0.3% OPTH.SOL BTL RIGHT EYE SCH ×6 (01:40→21:34)
[2020-06-28] MEDS ORDERED: Morphine 2 MG/ML SYRINGE IV ONE (05:09)
[2020-06-28 06:32] LABS: Calcium 8.2 mg/dL (8.6-10.3); Potassium 4.4 mmol/L (3.5-5.0)
[2020-06-28 06:38] LABS: BUN/Creatinine Ratio 18.9 (8-20); EGFR African American 70.9 (>60); EGFR Non-African American 58.6 (>60)
[2020-06-28 06:39] LABS: ABS Lymphocytes 0.2 10^3/ul (1.0-4.8); ABS Monocytes 0.2 10^3/ul (0-0.8); ABS Neutrophils 1.7 10^3/ul (1.5-7.7); Eosinophil % 1.9 %; Hematocrit 33 % (42-52); Lymphocyte % 10.2 %; Mean Corpuscular HGB Conc 33 g/dL (31-36); Mean Corpuscular Hemoglobin 33 pg (27-31); Mean Corpuscular Volume 101 fL (80-94); Nucleated Red Blood Cells % 0.1; Platelet Count 71 10^3/uL (150-450); Red Blood Count 3.31 10^6 /uL (4.18-5.48); Red Cell Distribution Width 18 % (10-15); White Blood Count 2.3 10^3/uL (3.5-10.8)
[2020-06-28] MEDS: Linezolid 600 MG IVPREMIX(*) 600 MG/300 ML BAG IVPB SCH ×2 (10:25→21:59)
[2020-06-28] MEDS: Polyethylene Glycol 3350 17 GM PACKET PO SCH (12:12)
[2020-06-28] MEDS ORDERED: Midazolam 5 mg/5 ml VIAL 1 mg/ml 5 ml VIAL (5 mg) ONE (12:52)
[2020-06-28] MEDS ORDERED: fentaNYL 100 mcg/2 ml 50 MCG/ML VIAL ONE ×2 (12:52→14:12)
[2020-06-28] MEDS ORDERED: Lidocaine 1% VIAL 10 MG/ML VIAL ONE (12:53)
[2020-06-28] MEDS ORDERED: Heparin 2 UNITS/ML IVPREMIX 3,000 UNIT/1,500 ML BAG IV ONE (13:01)
[2020-06-28] MEDS ORDERED: Iodixanol 320 (CONTRAST) 100 ML SDV ONE (13:01)
[2020-06-28] MEDS ORDERED: Heparin 1,000 UNIT/ML 10 ml (10,000 UNITS) CATHLAB/DIALYSIS ONE (13:51)
[2020-06-28] MEDS ORDERED: nitroGLYCERIN DRIP 25,000 MCG/250 ML BTL ONE (14:11)
[2020-06-28] MEDS: Magnesium Hydroxide LIQ 30 ML UDC PO PRN (17:16)
[2020-06-29] MEDS: Ciprofloxacin 0.3% OPTH.SOL BTL RIGHT EYE SCH ×6 (00:21→21:20)
[2020-06-29 05:30] LABS: ABS Eosinophils 0.1 10^3/ul (0-0.6); ABS Lymphocytes 0.2 10^3/ul (1.0-4.8); ABS Monocytes 0.2 10^3/ul (0-0.8); ABS Neutrophils 1.4 10^3/ul (1.5-7.7); Eosinophil % 3.1 %; Hematocrit 33 % (42-52); Hemoglobin 10.7 g/dL (14.0-18.0); Lymphocyte % 10.2 %; Mean Corpuscular HGB Conc 33 g/dL (31-36); Mean Corpuscular Hemoglobin 33 pg (27-31); Mean Corpuscular Volume 100 fL (80-94); Mean Platelet Volume 8.9 fL (7.4-10.4); Nucleated Red Blood Cells % 0.1; Platelet Count 72 10^3/uL (150-450); Red Blood Count 3.25 10^6 /uL (4.18-5.48); Red Cell Distribution Width 18 % (10-15)
[2020-06-29] MEDS ORDERED: Vancomycin Trough Check NOTE FOLLOW UP ONE (05:30)
[2020-06-29 05:46] LABS: BUN/Creatinine Ratio 18.9 (8-20); EGFR African American 67.6 (>60); EGFR Non-African American 55.9 (>60)
[2020-06-29 06:22] LABS: Potassium 4.1 mmol/L (3.5-5.0)
[2020-06-29] MEDS: Linezolid 600 MG IVPREMIX(*) 600 MG/300 ML BAG IVPB SCH ×2 (10:16→21:20)
[2020-06-29] MEDS: Polyethylene Glycol 3350 17 GM PACKET PO SCH (10:17)
[2020-06-30] MEDS: Ciprofloxacin 0.3% OPTH.SOL BTL RIGHT EYE SCH ×6 (00:45→21:11)
[2020-06-30 04:58] LABS: ABS Eosinophils 0.1 10^3/ul (0-0.6); ABS Lymphocytes 0.2 10^3/ul (1.0-4.8); ABS Monocytes 0.2 10^3/ul (0-0.8); ABS Neutrophils 1.3 10^3/ul (1.5-7.7); Eosinophil % 4.4 %; Hematocrit 33 % (42-52); Hemoglobin 10.9 g/dL (14.0-18.0); Lymphocyte % 13.6 %; Mean Corpuscular HGB Conc 33 g/dL (31-36); Mean Corpuscular Hemoglobin 33 pg (27-31); Mean Corpuscular Volume 100 fL (80-94); Mean Platelet Volume 8.8 fL (7.4-10.4); Platelet Count 75 10^3/uL (150-450); Red Blood Count 3.28 10^6 /uL (4.18-5.48); Red Cell Distribution Width 18 % (10-15); White Blood Count 1.8 10^3/uL (3.5-10.8)
[2020-06-30 05:13] LABS: Calcium 8.4 mg/dL (8.6-10.3); EGFR African American 65.8 (>60); EGFR Non-African American 54.4 (>60); Potassium 4.1 mmol/L (3.5-5.0)
[2020-06-30] MEDS: Linezolid 600 MG IVPREMIX(*) 600 MG/300 ML BAG IVPB SCH ×2 (09:35→21:10)
[2020-06-30] MEDS: Polyethylene Glycol 3350 17 GM PACKET PO SCH (09:37)
[2020-07-01] MEDS: Ciprofloxacin 0.3% OPTH.SOL BTL RIGHT EYE SCH ×6 (00:06→19:31)
[2020-07-01 05:36] LABS: ABS Eosinophils 0.1 10^3/ul (0-0.6); ABS Lymphocytes 0.2 10^3/ul (1.0-4.8); ABS Monocytes 0.1 10^3/ul (0-0.8); Eosinophil % 4.8 %; Hematocrit 31 % (42-52); Hemoglobin 10.5 g/dL (14.0-18.0); Lymphocyte % 15.2 %; Mean Corpuscular HGB Conc 34 g/dL (31-36); Mean Corpuscular Hemoglobin 34 pg (27-31); Mean Corpuscular Volume 99 fL (80-94); Mean Platelet Volume 8.2 fL (7.4-10.4); Nucleated Red Blood Cells % 0.2; Platelet Count 70 10^3/uL (150-450); Red Blood Count 3.15 10^6 /uL (4.18-5.48); Red Cell Distribution Width 18 % (10-15); White Blood Count 1.4 10^3/uL (3.5-10.8)
[2020-07-01 05:47] LABS: BUN/Creatinine Ratio 20.3 (8-20); Calcium 7.9 mg/dL (8.6-10.3); EGFR African American 56.7 (>60); EGFR Non-African American 46.9 (>60); Potassium 4.4 mmol/L (3.5-5.0)
[2020-07-01] MEDS: Linezolid 600 MG IVPREMIX(*) 600 MG/300 ML BAG IVPB SCH ×2 (09:42→22:03)
[2020-07-01] MEDS: Polyethylene Glycol 3350 17 GM PACKET PO SCH (09:42)
[2020-07-01] MEDS ORDERED: Furosemide 40 mg/4 ml IV VIAL IV ONE (18:58)
[2020-07-02] MEDS: Ciprofloxacin 0.3% OPTH.SOL BTL RIGHT EYE SCH ×6 (00:01→20:34)
[2020-07-02 05:27] LABS: ABS Lymphocytes 0.2 10^3/ul (1.0-4.8); ABS Monocytes 0.2 10^3/ul (0-0.8); Eosinophil % 1.5 %; Hematocrit 28 % (42-52); Hemoglobin 9.7 g/dL (14.0-18.0); Lymphocyte % 8.7 %; Mean Corpuscular HGB Conc 34 g/dL (31-36); Mean Corpuscular Hemoglobin 34 pg (27-31); Mean Corpuscular Volume 98 fL (80-94); Mean Platelet Volume 8.1 fL (7.4-10.4); Platelet Count 102 10^3/uL (150-450); Red Blood Count 2.88 10^6 /uL (4.18-5.48); Red Cell Distribution Width 18 % (10-15); White Blood Count 2.5 10^3/uL (3.5-10.8)
[2020-07-02 05:43] LABS: BUN/Creatinine Ratio 25.8 (8-20); EGFR African American 53.8 (>60); EGFR Non-African American 44.4 (>60)
[2020-07-02 05:44] LABS: Potassium 5.2 mmol/L (3.5-5.0)
[2020-07-02] MEDS: Polyethylene Glycol 3350 17 GM PACKET PO SCH (07:21)
[2020-07-02] MEDS: Linezolid 600 MG IVPREMIX(*) 600 MG/300 ML BAG IVPB SCH ×2 (09:12→20:35)
[2020-07-02 10:00] LABS: Hematocrit 29 % (42-52); Hemoglobin 9.5 g/dL (14.0-18.0)
[2020-07-02 10:24] LABS: C Reactive Protein 18.88 mg/L (<8.01)
[2020-07-02] MEDS ORDERED: Octreotide Acetate 50 MCG in NS 0.9% 50 ML IV ONE (12:00)
[2020-07-02] MEDS: Octreotide Acetate 500 MCG in NS 0.9% 100 ml BAG 100 ML IV SCH (13:21)
[2020-07-02 16:09] LABS: Hematocrit 29 % (42-52); Hemoglobin 9.6 g/dL (14.0-18.0)
[2020-07-02 18:02] LABS: BUN/Creatinine Ratio 29.7 (8-20); EGFR African American 56.7 (>60); EGFR Non-African American 46.9 (>60)
[2020-07-02 18:03] LABS: Potassium 5.5 mmol/L (3.5-5.0)
[2020-07-02] MEDS ORDERED: NS 0.9% 1000 ml BAG 1,000 ML IV SCH (18:45)
[2020-07-02] MEDS: Pantoprazole VIAL 40 MG VIAL IV SCH (21:09)
[2020-07-03] MEDS: Ciprofloxacin 0.3% OPTH.SOL BTL RIGHT EYE SCH ×7 (00:11→23:47)
[2020-07-03 00:33] LABS: Hematocrit 25 % (42-52); Hemoglobin 8.3 g/dL (14.0-18.0)
[2020-07-03 00:47] LABS: BUN/Creatinine Ratio 27.9 (8-20); Calcium 7.7 mg/dL (8.6-10.3); EGFR African American 54.2 (>60); EGFR Non-African American 44.8 (>60); Potassium 4.9 mmol/L (3.5-5.0)
[2020-07-03] MEDS: Octreotide Acetate 500 MCG in NS 0.9% 100 ml BAG 100 ML IV SCH ×2 (01:22→12:34)
[2020-07-03 05:46] LABS: Hematocrit 25 % (42-52); Hemoglobin 8.3 g/dL (14.0-18.0); Mean Corpuscular HGB Conc 34 g/dL (31-36); Mean Corpuscular Hemoglobin 34 pg (27-31); Mean Corpuscular Volume 100 fL (80-94); Mean Platelet Volume 8.3 fL (7.4-10.4); Platelet Count 60 10^3/uL (150-450); Red Blood Count 2.48 10^6 /uL (4.18-5.48); Red Cell Distribution Width 18 % (10-15); White Blood Count 1.4 10^3/uL (3.5-10.8)
[2020-07-03 05:56] LABS: BUN/Creatinine Ratio 28.9 (8-20); Calcium 7.7 mg/dL (8.6-10.3); EGFR African American 56.3 (>60); EGFR Non-African American 46.5 (>60)
[2020-07-03 07:33] LABS: ABS Lymphocytes 0.2 10^3/ul (1.0-4.8); ABS Monocytes 0.1 10^3/ul (0-0.8); ABS Neutrophils 0.9 10^3/ul (1.5-7.7); Eosinophil % 3.4 %; Lymphocyte % 17.4 %; Nucleated Red Blood Cells % 0.1
[2020-07-03] MEDS: SPIRONOLACTONE 25 MG PO SCH (09:17)
[2020-07-03] MEDS: Polyethylene Glycol 3350 17 GM PACKET PO SCH (09:17)
[2020-07-03] MEDS: Linezolid 600 MG IVPREMIX(*) 600 MG/300 ML BAG IVPB SCH ×2 (09:19→21:56)
[2020-07-03] MEDS ORDERED: Propofol 10 MG/ML 20 ML BTL ONE ×2 (15:00→15:32)
[2020-07-03] MEDS ORDERED: fentaNYL 100 mcg/2 ml 50 MCG/ML VIAL IV PRN (16:09)
[2020-07-03] MEDS ORDERED: fentaNYL 100 mcg/2 ml 50 MCG/ML VIAL ONE (16:14)
[2020-07-03] MEDS: Pantoprazole VIAL 40 MG VIAL IV SCH (21:54)
[2020-07-04] MEDS: Octreotide Acetate 500 MCG in NS 0.9% 100 ml BAG 100 ML IV SCH ×3 (01:26→15:43)
[2020-07-04] MEDS: Ciprofloxacin 0.3% OPTH.SOL BTL RIGHT EYE SCH ×5 (04:39→22:14)
[2020-07-04 05:46] LABS: ABS Eosinophils 0.1 10^3/ul (0-0.6); ABS Lymphocytes 0.2 10^3/ul (1.0-4.8); ABS Monocytes 0.1 10^3/ul (0-0.8); Eosinophil % 3.9 %; Hematocrit 24 % (42-52); Hemoglobin 8.3 g/dL (14.0-18.0); Lymphocyte % 17.4 %; Mean Corpuscular HGB Conc 34 g/dL (31-36); Mean Corpuscular Hemoglobin 34 pg (27-31); Mean Corpuscular Volume 100 fL (80-94); Mean Platelet Volume 8.2 fL (7.4-10.4); Nucleated Red Blood Cells % 0.1; Platelet Count 52 10^3/uL (150-450); Red Blood Count 2.44 10^6 /uL (4.18-5.48); Red Cell Distribution Width 19 % (10-15); White Blood Count 1.3 10^3/uL (3.5-10.8)
[2020-07-04 05:49] LABS: ABS Neutrophils 0.9 10^3/ul (1.5-7.7)
[2020-07-04 05:50] LABS: BUN/Creatinine Ratio 29.9 (8-20); EGFR Non-African American 51.2 (>60)
[2020-07-04] MEDS: oxyCODONE 5 mg/5 ml ORAL.SOLN UDC PO PRN ×2 (07:54→15:52)
[2020-07-04] MEDS: Polyethylene Glycol 3350 17 GM PACKET PO SCH (09:16)
[2020-07-04] MEDS: Linezolid 600 MG IVPREMIX(*) 600 MG/300 ML BAG IVPB SCH (09:32)
[2020-07-04] MEDS: SPIRONOLACTONE 25 MG PO SCH (09:32)
[2020-07-04] MEDS ORDERED: DAPTOMYCIN IVPB SCH (21:00)
[2020-07-04] MEDS ORDERED: NS 0.9% IVPB SCH (21:00)
[2020-07-04] MEDS ORDERED: NS 0.9% 50 ML 50 ML ONE (22:04)
[2020-07-04] MEDS: Pantoprazole VIAL 40 MG VIAL IV SCH (22:13)
[2020-07-05] MEDS: Ciprofloxacin 0.3% OPTH.SOL BTL RIGHT EYE SCH ×6 (00:07→20:45)
[2020-07-05 05:10] LABS: ABS Eosinophils 0.1 10^3/ul (0-0.6); ABS Lymphocytes 0.2 10^3/ul (1.0-4.8); ABS Monocytes 0.1 10^3/ul (0-0.8); Eosinophil % 4.1 %; Hematocrit 23 % (42-52); Hemoglobin 7.8 g/dL (14.0-18.0); Lymphocyte % 13.5 %; Mean Corpuscular HGB Conc 34 g/dL (31-36); Mean Corpuscular Hemoglobin 34 pg (27-31); Mean Corpuscular Volume 100 fL (80-94); Mean Platelet Volume 7.8 fL (7.4-10.4); Nucleated Red Blood Cells % 0.2; Platelet Count 45 10^3/uL (150-450); Red Blood Count 2.29 10^6 /uL (4.18-5.48); Red Cell Distribution Width 19 % (10-15); White Blood Count 1.4 10^3/uL (3.5-10.8)
[2020-07-05 05:23] LABS: BUN/Creatinine Ratio 28.8 (8-20); Calcium 7.9 mg/dL (8.6-10.3); EGFR Non-African American 50.4 (>60); Potassium 4.7 mmol/L (3.5-5.0)
[2020-07-05] MEDS: SPIRONOLACTONE 25 MG PO SCH (09:49)
[2020-07-05] MEDS: Polyethylene Glycol 3350 17 GM PACKET PO SCH (09:57)
[2020-07-05] MEDS ORDERED: Vancomycin per Pharmacy 1 EA NOTE FOLLOW UP SCH (14:00)
[2020-07-05] MEDS: Vancomycin 750 MG in NS 0.9% 250 ml 250 ML IVPB SCH (16:12)
[2020-07-05] MEDS: Pantoprazole VIAL 40 MG VIAL IV SCH (20:50)
[2020-07-06] MEDS: Ciprofloxacin 0.3% OPTH.SOL BTL RIGHT EYE SCH ×3 (01:05→09:05)
[2020-07-06 06:04] LABS: ABS Eosinophils 0.1 10^3/ul (0-0.6); ABS Lymphocytes 0.2 10^3/ul (1.0-4.8); ABS Monocytes 0.1 10^3/ul (0-0.8); Eosinophil % 4.8 %; Hematocrit 23 % (42-52); Hemoglobin 7.7 g/dL (14.0-18.0); Lymphocyte % 15.8 %; Mean Corpuscular HGB Conc 34 g/dL (31-36); Mean Corpuscular Hemoglobin 34 pg (27-31); Mean Corpuscular Volume 100 fL (80-94); Mean Platelet Volume 8.1 fL (7.4-10.4); Nucleated Red Blood Cells % 0.1; Platelet Count 45 10^3/uL (150-450); Red Blood Count 2.27 10^6 /uL (4.18-5.48); Red Cell Distribution Width 19 % (10-15); White Blood Count 1.5 10^3/uL (3.5-10.8)
[2020-07-06 06:19] LABS: Albumin 2.5 g/dL (3.2-5.2); Albumin/Globulin Ratio 0.6 (1-3); BUN/Creatinine Ratio 26.6 (8-20); Calcium 7.8 mg/dL (8.6-10.3); EGFR Non-African American 50.4 (>60); Globulin 4.3 g/dL (2-4); Potassium 4.9 mmol/L (3.5-5.0); Total Bilirubin 1.7 mg/dL (0.2-1.0); Total Protein 6.8 g/dL (6.4-8.9)
[2020-07-06] MEDS: Polyethylene Glycol 3350 17 GM PACKET PO SCH (09:09)
[2020-07-06] MEDS: SPIRONOLACTONE 25 MG PO SCH (09:09)
[2020-07-06] MEDS: Vancomycin 750 MG in NS 0.9% 250 ml 250 ML IVPB SCH (13:45)
[2020-07-06 20:50] LABS: HIT ELISA 0.091 OD (<0.400)
[2020-07-06] MEDS: Pantoprazole VIAL 40 MG VIAL IV SCH (21:01)
[2020-07-07 05:41] LABS: ABS Eosinophils 0.1 10^3/ul (0-0.6); ABS Lymphocytes 0.2 10^3/ul (1.0-4.8); ABS Monocytes 0.1 10^3/ul (0-0.8); Eosinophil % 7.2 %; Hematocrit 22 % (42-52); Hemoglobin 7.3 g/dL (14.0-18.0); Lymphocyte % 16.1 %; Mean Corpuscular HGB Conc 33 g/dL (31-36); Mean Corpuscular Hemoglobin 33 pg (27-31); Mean Corpuscular Volume 101 fL (80-94); Mean Platelet Volume 8.1 fL (7.4-10.4); Nucleated Red Blood Cells % 0.3; Platelet Count 39 10^3/uL (150-450); Red Blood Count 2.19 10^6 /uL (4.18-5.48); Red Cell Distribution Width 19 % (10-15); White Blood Count 1.3 10^3/uL (3.5-10.8)
[2020-07-07 05:42] LABS: ABS Neutrophils 0.9 10^3/ul (1.5-7.7)
[2020-07-07 05:55] LABS: BUN/Creatinine Ratio 26.3 (8-20); Calcium 7.9 mg/dL (8.6-10.3); EGFR African American 64.1 (>60); Potassium 4.6 mmol/L (3.5-5.0)
[2020-07-07] MEDS: Polyethylene Glycol 3350 17 GM PACKET PO SCH (09:24)
[2020-07-07] MEDS: SPIRONOLACTONE 25 MG PO SCH (09:24)
[2020-07-07] MEDS: Vancomycin 750 MG in NS 0.9% 250 ml 250 ML IVPB SCH (14:14)
[2020-07-07] MEDS ORDERED: Furosemide 20 mg/2 ml IV VIAL IV SLOW PU ONE (15:37)
[2020-07-07] MEDS: oxyCODONE 5 mg/5 ml ORAL.SOLN UDC PO PRN ×2 (16:39→21:02)
[2020-07-07] MEDS: Saline FLUSH-CENTRAL 10 ML SYRINGE CENT\\PICC SCH (16:42)
[2020-07-07] MEDS: Pantoprazole VIAL 40 MG VIAL IV SCH (21:02)
[2020-07-08] MEDS: oxyCODONE 5 mg/5 ml ORAL.SOLN UDC PO PRN ×2 (02:07→06:16)
[2020-07-08] MEDS ORDERED: Morphine 2 MG/ML SYRINGE IV ONE ×2 (03:43→06:40)
[2020-07-08 05:38] LABS: ABS Lymphocytes 0.1 10^3/ul (1.0-4.8); ABS Monocytes 0.2 10^3/ul (0-0.8); ABS Neutrophils 4.8 10^3/ul (1.5-7.7); Hematocrit 27 % (42-52); Lymphocyte % 2.9 %; Mean Corpuscular HGB Conc 34 g/dL (31-36); Mean Corpuscular Hemoglobin 34 pg (27-31); Mean Corpuscular Volume 102 fL (80-94); Nucleated Red Blood Cells % 0.1; Platelet Count 42 10^3/uL (150-450); Red Blood Count 2.64 10^6 /uL (4.18-5.48); Red Cell Distribution Width 19 % (10-15); White Blood Count 5.2 10^3/uL (3.5-10.8)
[2020-07-08] MEDS: Saline FLUSH-CENTRAL 10 ML SYRINGE CENT\\PICC SCH ×2 (05:46→18:07)
[2020-07-08 05:52] LABS: BUN/Creatinine Ratio 23.6 (8-20); Calcium 8.2 mg/dL (8.6-10.3); EGFR African American 45.8 (>60); EGFR Non-African American 37.9 (>60); Potassium 5.4 mmol/L (3.5-5.0)
[2020-07-08] MEDS: Ondansetron 4 mg VIAL 2 MG/ML 2 ml VIAL IV PRN ×2 (06:47→16:09)
[2020-07-08] MEDS ORDERED: Scopolamine PATCH Remove NOTE PATCH OFF SCH (09:00)
[2020-07-08] MEDS: SPIRONOLACTONE 25 MG PO SCH (09:02)
[2020-07-08] MEDS: Polyethylene Glycol 3350 17 GM PACKET PO SCH (09:02)
[2020-07-08] MEDS: Metoclopramide 5 MG/ML VIAL (10 mg) IV PRN ×2 (11:58→20:42)
[2020-07-08] MEDS ORDERED: Vancomycin Trough Check NOTE FOLLOW UP ONE (13:30)
[2020-07-08] MEDS: Vancomycin 750 MG in NS 0.9% 250 ml 250 ML IVPB SCH (14:53)
[2020-07-08 15:36] VITALS: BP 82/58
[2020-07-08] MEDS ORDERED: LORazepam 2 mg VIAL 1 ml IV PUSH PRN (16:30)
[2020-07-08] MEDS ORDERED: Prochlorperazine 5 mg/ml 2 ml VIAL (10 mg) IV PRN (16:30)
[2020-07-08] MEDS ORDERED: Lorazepam PYXIS KEY PRN (16:35)
[2020-07-08] MEDS: Morphine 2 MG/ML SYRINGE IV PRN ×4 (16:46→22:45)
[2020-07-08] MEDS: Pantoprazole VIAL 40 MG VIAL IV SCH (20:42)
[2020-07-08] MEDS ORDERED: Vancomycin 500 MG in NS 0.9% 250 ML IVPB SCH (23:00)
[2020-07-09] MEDS: Morphine 2 MG/ML SYRINGE IV PRN (01:38)
[2020-07-09] MEDS ORDERED: SPIRONOLACTONE 25 MG PO SCH (09:00)
[2020-07-10] MEDS ORDERED: Vancomycin Trough Check NOTE FOLLOW UP ONE (10:30)
== END 2020-07-09 02:20 | disposition expired | DRG 616 ==
LOC: ED 12:19 → SSU 16:00
PROVIDERS: ADMIT Internal Medicine; ATTEND Internal Medicine
PROC: O.GIEGD (2020-07-03 13:40)